=== PATIENT | female | born 1950 | race Hispanic/Latino ===

== ENCOUNTER 2016-10-11 18:50 | Inpatient (IN) | payer MEDICAID ==
[2016-10-11 18:59] VITALS: BMI 27.4
--- NOTE | 2016-10-11 19:05 | ED PDOC ---
HPI: Altered Mental Status Chief Complaint (Provider): AMS History Per: EMS Additional Complaint(s): 66 yo female, PMH of ESRD on Dialysis, CVA, HTN, presents to ED with AMS. As per EMS, Pt was at [facility], completed her session, and her BP spiked. EMS was contacted and reports that they noted Pt had left sided weakness. Pt has a history of strokes in the past however, unsure of what her baseline is. Pt moaning, non verbal. No history in chart review. Pt has paperwork with her from [employer] to [facility] from [facility]: 17:30: 199/100 1800: 244/100 Clonidine 0.2 mg administered PO 18:30 268/113 Normally she is verbal and walks with a cane- still verbal when leaving. EMS report Pt began moaning in route. Pt's PMD: Dr. Foreman <Mariana Stearns A - Last Filed: 10/11/16 19:01> <Syl Gonzalez Y - Last Filed: 10/12/16 00:01> <Lora Blue A - Last Filed: 10/18/16 09:54> Time Seen by Provider: 10/11/16 18:50 Chief Complaint (Nursing): Altered Mental Status NIHSS Stroke Scale - Date/Time Evaluation Performed Date Performed: 10/11/16 Time Performed: 19:00 When Was NIHSS Performed: Baseline - How Severe is the Stroke Level of Consciousness: 0=Alert LOC to Questions: 2=Neither correct LOC to commands: 2=Neither correct Best Gaze: 0=Normal Visual: 0=No visual loss Facial: 0=Normal Motor Arm - Left: 0=No drift Motor Arm - Right: 0=No drift Motor Leg - Left: 0=No drift Motor Leg - Right: 0=No drift Limb Ataxia: 0=Absent Sensory: 0=Normal Best Language: 0=No aphasia Dysarthia: 1=Mild to moderate slurring Extinction & Inattention (Neglect): 0=Normal, no object Score: 5 <Syl Gonzalez Y - Last Filed: 10/12/16 00:01> rTPA Inclusion/Exclusion - Refusal of Treatment Patient Refused Treatment: No - Inclusion Criteria for Altepase Patient is 18 years or Older: Yes Clinical DX Ischemic Stroke Cause Neurological Deficit: No Time of Onset Established Less Than 270 Mins Before TX Begin: No Risk/Benefit Discussed With Patient/Family Member Present: No - Exclusion Criteria for Altepase Uncontrolled Hypertension at Time of TX (SBP>185 or DBP>110): Yes Active Internal Bleeding: No Known Bleeding Diathesis: No Evidence of an Intracranial Hemorrhage: No Evidence Major Acute Infarct w/ Signs Greater Than 1/3 MCA: No Suspicion of Subarachnoid Bleed on PreTX Eval(CT: neg bleed): No - Warning to TPA With Conditions Following Conditions Weighed Against Anticipated Benefit: No <Syl Gonzalez Y - Last Filed: 10/12/16 00:01> - Refusal of Treatment Patient Refused Treatment: No - Inclusion Criteria for Altepase Patient is 18 years or Older: Yes Clinical DX Ischemic Stroke Cause Neurological Deficit: No Time of Onset Established Less Than 270 Mins Before TX Begin: No Risk/Benefit Discussed With Patient/Family Member Present: No - Exclusion Criteria for Altepase Uncontrolled Hypertension at Time of TX (SBP>185 or DBP>110): Yes <Lora Blue A - Last Filed: 10/18/16 09:54> Supervising Attending Note - Supervising Attending Note The Documented history was done by the: Physician Hat Brusher Machine The documented physical exam was done by the: Physician Hat Brusher Machine The documented procedures were done by the: Physician Hat Brusher Machine - Attestation: I have personally seen and examined this patient.: Yes I have fully participated in the care of the patient.: Yes I have reviewed all pertinent clinical information: Yes - Notes: Notes:: CRITICAL CARE TIME 60 minutes <Syl Gonzalez Y - Last Filed: 10/12/16 00:01> Past Medical History Reviewed: Historical Data, Nursing Documentation, Vital Signs Vital Signs: Last Vital Signs Temp Pulse 99 H 10/11/16 18:53 Resp 10/11/16 18:53 BP 264/101 H 10/11/16 18:53 Pulse Ox 70 L 10/11/16 18:53 - Medical History PMH: CVA, HTN, End Stage Renal Disease - Family History Family History: States: Unknown Family Hx <Mariana Stearns - Last Filed: 10/11/16 19:01> Vital Signs: Last Vital Signs Temp Pulse 66 10/11/16 21:45 Resp 10/11/16 21:45 BP 192/78 H 10/11/16 22:06 Pulse Ox 100 10/11/16 21:45 - Surgical History Surgical History: No Surg Hx <LisaSyl Y - Last Filed: 10/12/16 00:01> Vital Signs: Last Vital Signs Temp 97.8 F 10/14/16 20:00 Pulse 58 L 10/14/16 21:06 Resp 14 10/14/16 20:00 BP 179/40 H 10/14/16 21:06 Pulse Ox 98 10/14/16 20:00 <Lora Blue A - Last Filed: 10/18/16 09:54> - Home Medications Home Medications: Ambulatory Orders Medication Instructions Recorded Lisinopril [Zestril] 20 mg PO DAILY #30 tab 10/15/16 Vitamin B Complex/Vit C/Folic 1 tab PO DAILY #90 tab 10/15/16 [Nephro-Alyse] amLODIPine [Norvasc] 10 mg PO DAILY #30 tab 10/15/16 cloNIDine [Catapres] 0.1 mg PO Q8 #90 10/15/16 levETIRAcetam [Keppra] 250 mg PO BID #60 tab 10/15/16 - Allergies Allergies/Adverse Reactions: Allergies Allergy/AdvReac Type Severity Reaction Status Date / Time losartan [From Cozaar] Allergy Unknown unknown Verified 10/11/16 18:53 Review of Systems Review Of Systems: ROS cannot be obtained secondary to pt's inabilty to answer questions. <Mariana Stearns A - Last Filed: 10/11/16 19:01> Physical Exam - Reviewed Nursing Documentation Reviewed: Yes Vital Signs Reviewed: Yes - Physical Exam Appears: Positive for: Non-toxic Head Exam: Positive for: ATRAUMATIC, NORMAL INSPECTION, NORMOCEPHALIC Skin: Positive for: Normal Color, Warm, DRY Eye Exam: Positive for: EOMI, Normal appearance, PERRL ENT: Positive for: Normal ENT Inspection Neck: Positive for: Normal, Painless ROM Cardiovascular/Chest: Positive for: Regular Rate, Rhythm Respiratory: Positive for: CNT, Normal Breath Sounds Gastrointestinal/Abdominal: Positive for: Normal Exam, Bowel Sounds, Soft Back: Positive for: Normal Inspection Extremity: Positive for: Normal ROM Neurologic/Psych: Positive for: Alert, Other (moaning). Negative for: Gait <Mariana Stearns - Last Filed: 10/11/16 19:01> - ECG O2 Sat by Pulse Oximetry: 70 <Mariana Stearns - Last Filed: 10/11/16 19:01> - Laboratory Results Result Diagrams: 10/11/16 20:00 10/11/16 20:00 - ECG Pulse Ox Interpretation: Abnormal - Radiology X-Ray: Interpreted by Me, Viewed By Me X-Ray Interpretation: Other (chf, cant rule out infiltrate) - Core Measure Core Measure Indicators: Code Stroke <Syl Gonzalez Y - Last Filed: 10/12/16 00:01> - Laboratory Results Result Diagrams: 10/13/16 14:00 10/13/16 14:00 <Lora Blue - Last Filed: 10/18/16 09:54> Medical Decision Making Medical Decision Making: Code stroke activated. Dr. Blue at bedside. En route to CT scan, Pt developed tonic clonic seizure. 2 mg Ativan administered, seizing resolved. Pt post ictal during CT scan. Case endorsed to ED MD, Dr. Gonzalez, at 19:10 to continue critical care. <Mariana Stearns - Last Filed: 10/11/16 19:01> Medical Decision Making: Patient presented altered from dialysis and code stroke was activated in field. On arrival patient was purposely moving extremities but seemed confused. She was transferred to CT where she had a generalized tonic clonic seizure. I went to CT and patient's seizure had resolved by my arrival. She was transferred back to ER and became more alert. At that time arrived and took over care. <Lora Blue A - Last Filed: 10/18/16 09:54> Disposition - Patient ED Disposition Is Patient to be Admitted: Yes - Disposition Disposition Time: 19:12 - POA Present On Arrival: None <DarynMariana Bender - Last Filed: 10/11/16 19:01> - Patient ED Disposition Is Patient to be Admitted: Yes <Syl Gonzalez Y - Last Filed: 10/12/16 00:01> - Patient ED Disposition Is Patient to be Admitted: Yes - POA Present On Arrival: None <Lora Blue - Last Filed: 10/18/16 09:54> - Clinical Impression Clinical Impression: Altered mental status, Seizure - Disposition Condition: SERIOUS
[2016-10-11] MEDS ORDERED: Azithromycin 500 MG in Sodium Chloride 0.9% 250 ML IVPB STA (19:45)
[2016-10-11] MEDS ORDERED: cefTRIAXone (Rocephin) 1 gm Inj ONE (19:50)
--- NOTE | 2016-10-11 20:08 | ED PDOC ---
- Laboratory Results Result Diagrams: 10/11/16 20:00 10/11/16 20:00 - ECG O2 Sat by Pulse Oximetry: 70 (BiPAP) Pulse Ox Interpretation: Abnormal - Critical Care Total Time (In Min): 30 Medical Decision Making Medical Decision Makin:00 Patient transferred over to provider from Dr. Blue and WOO stern. Patient came in to the emergency room s/p dialysis completed with left-sided weakness. While patient was in CAT scan machine, she had a generalized seizure. Patient's blood pressure is systolic and in the high 200s, is restless and tachypnic, and was placed on BiPAP. CAT scan of brain is negative for acute processes. Antibiotics will be ordered for possible pneumonia. As per reassessment, patient presents with diffuse rales. Will begin a Cardene drip. Provider spoke with Dr. Meza neurology pinion sorter who states that the patient is not a TPA candidate. Initial Plan: * ABG Shock Panel * EKG * Cardene 20 mg in 200 ml IV at 5 mg/hr * Rocephin 1 gm * Zithromax 500 mg IVPB * BiPAP * Gentamicin 40 mg IVPB * Vancomycin 500 mg IVPB * Reevaluation 20:20 public relations writer will put nephrology (Dr. Hong [facility]) pinion sorter. Spoke with family and all questions were answered regarding diagnosis. 20:37 public relations writer spoke with Dr. Hong of nephrology who states that dialysis can be done tonight. 20:52 public relations writer called medicine pinion sorter for patient. 21:12 public relations writer spoke with hospitalist, Dr. Cook, who agrees to accept the patient in ICU. Awaiting callback from medicine, Dr. Hathaway. 21:30 public relations writer spoke with Dr. Hathaway who states that he wants cardiology pinion sorter and wants to add on Gentamicin and Vancomycin. ordered/ pts family made aware of plan. spent time at bedside answering questions from pts son and daughter in law. Scribe Attestation: Documented by Cristino Hawkins, acting as a scribe for Syl Gonzalez MD. Provider Scribe Attestation: All medical record entries made by the Scribe were at my direction and personally dictated by me. I have reviewed the chart and agree that the record accurately reflects my personal performance of the history, physical exam, medical decision making, and the department course for this patient. I have also personally directed, reviewed, and agree with the discharge instructions and disposition. Disposition Counseled Patient/Family Regarding: Studies Performed, Diagnosis - Clinical Impression Clinical Impression: Altered mental status, Seizure - POA Present On Arrival: None - Disposition Disposition: Admitted as In-Patient Disposition Time: 21:00 Condition: SERIOUS
[2016-10-11 20:09] LABS: BASO # 0.1 K/uL (0.0-0.2); BASO % 0.6 % (0.0-2.0); EOS # 0.1 K/uL (0.0-0.7); EOS % 1.5 % (0.0-4.0); HEMATOCRIT 42.3 % (34.0-47.0); LYMPH # 1.4 K/uL (1.0-4.3); LYMPH % 13.8 % (20.0-40.0); MEAN CELL VOLUME 99.2 fl (81.0-99.0); MEAN CORPUSCULAR HEMOGLOBIN 31.8 pg (27.0-31.0); MEAN CORPUSCULAR HGB CONC 32.1 g/dL (33.0-37.0); MEAN PLATELET VOLUME 10.8 fl (7.2-11.7); MONO # 0.5 K/uL (0.0-0.8); MONO % 4.6 % (0.0-10.0); NEUT # 7.8 K/uL (1.8-7.0); NEUT % 79.5 % (50.0-75.0); RED CELL DISTRIBUTION WIDTH 16.8 % (11.5-14.5); WHITE BLOOD COUNT 9.8 K/uL (4.8-10.8)
[2016-10-11 20:16] LABS: ALB/GLOB RATIO 1.4 (1.0-2.1); ALCOHOL SERUM < 10 mg/dl (0-10); ALKALINE PHOSPHATASE 162 U/L (38-126); ALT/SGPT 76 U/L (9-52); AST/SGOT 47 U/L (14-36); BILIRUBIN,TOTAL 0.6 mg/dl (0.2-1.3); BLOOD UREA NITROGEN 27 mg/dl (7-17); CARBON DIOXIDE 23 mmol/L (22-30); CHLORIDE 96 mmol/L (98-107); GFR AFRICAN-AMERICAN 15; GLUCOSE,RANDOM 169 mg/dL (65-105); MAGNESIUM 2.1 MG/DL (1.6-2.3); PHOSPHOROUS 4.6 mg/dl (2.5-4.5); POTASSIUM 3.8 MMOL/L (3.6-5.0); SODIUM 136 mmol/l (132-148); TOTAL PROTEIN 7.5 G/DL (6.3-8.2)
[2016-10-11] MEDS: Nicardipine 20 MG/200 ML 20 MG/200 ML BAG IV ONE ×2 (20:40→22:30)
[2016-10-11] MEDS ORDERED: Albuterol-Ipratrop 3 mg / 0.5 (3 ml) UD INH PRN (21:10)
[2016-10-11] MEDS ORDERED: STERILE WATER FOR INJ IVPB STA (21:28)
[2016-10-11] MEDS ORDERED: GENTAMICIN IVPB STA (21:28)
[2016-10-11] MEDS ORDERED: Gentamicin 40 MG in Sodium Chloride 0.9% 50 ML IVPB STA (21:46)
[2016-10-11 22:01] LABS: PARTIAL THROMBOPLASTIN TIME 26.6 SECONDS (23.3-32.5)
--- NOTE | 2016-10-11 22:09 | CP.PCM.HP ---
History of Present Illness - History of Present Illness History of Present Illness: CC: elevated BP, AMS, ?facial droop History largely from chart and family as patient not awake/interactive currently HPI: This is a 66 y/o female with ESRD on HD (M/W/F), HTN, ?seizure disorder who was brought in by EMS after reportedly having severely elevated SBP (200+) at dialysis along with ?L facial droop and changes in mental status. Apparently she was initially given a dose of clonidine there when her BP was first up, but then EMS was called when the facial droop started ~530. By the time of arrival in ED, no facial droop was present, BP was still uncontrolled, and mental status was decreased. She was not a TPA candidate per neurology. Per report, while at CT she had a seizure. Per family she has been on BP medications, but decided to stop them herself ~6 months ago as she felt she was 'on too many medications'. But recently she has been having severely elevated BP following her dialysis (200s) and so started taking some of her BP medications again. Unclear which medications she is on or how compliant she is with them. Apparently she has checked her BPs on non HD days at the local [facility] and it has been SBP 130s. Patient does have HACKETT when BP is high. Patient unable to provide any further history. Family not able to provide any other significant history. ROS: Unable to perform; patient not awake/interactive currently MHx: ESRD on HD as above, HTN, possible seizure disorder SHx: Thyroid surgery?, one donated kidney, surgery for trauma, and GI tumor surgery with temporary colostomy Allergies: Losartan Medications: Unknown currently Family Hx: Patient unable to provide Social Hx: Lives with family, no EtOH, no Tobacco Surrogate: Son, info in chart Present on Admission - Present on Admission Any Indicators Present on Admission: No Past Patient History - Past Social History Smoking Status: Never Smoked - CARDIAC Hx Hypertension: Yes - RENAL Hx Dialysis: Yes - PSYCHIATRIC Hx Substance Use: No Meds Allergies/Adverse Reactions: Allergies Allergy/AdvReac Type Severity Reaction Status Date / Time losartan [From Cozaar] Allergy Unknown unknown Verified 10/11/16 18:53 Physical Exam - Constitutional Appears: Confused Additional comments: confused, does not follow commands, and is somnolent as well - Head Exam Head Exam: ATRAUMATIC, NORMOCEPHALIC - Eye Exam Eye Exam: EOMI, PERRL - ENT Exam ENT Exam: Mucous Membranes Moist - Neck Exam Neck exam: Positive for: Full Rom - Respiratory Exam Additional comments: bibasilar crackles - Cardiovascular Exam Cardiovascular Exam: REGULAR RHYTHM, +S1, +S2 - GI/Abdominal Exam GI & Abdominal Exam: Normal Bowel Sounds, Soft - Extremities Exam Extremities exam: Positive for: normal inspection - Neurological Exam Additional comments: somnolent, does not follow commands well - Skin Skin Exam: Dry, Warm Results - Vital Signs Recent Vital Signs: Last Vital Signs Temp Pulse 71 10/11/16 21:31 Resp 20 10/11/16 21:31 BP 192/78 H 10/11/16 21:56 Pulse Ox 70 L 10/11/16 21:33 - Labs Result Diagrams: 10/11/16 20:00 10/11/16 20:00 - Imaging and Cardiology CT scan - head Status: Image reviewed by me (No obvious findings; no midline shift, no masses or bleeding) Chest x-ray Status: Image reviewed by me (Likely some vol overload, ?opacity on right) Assessment & Plan (1) Flash pulmonary edema Assessment and Plan: 66 y/o female with multiple medical problems coming in with possible TIA/CVA, elevated BP and possible FPE/vol overload, ?seizure, and possible PNA. 1) TIA/CVA, AMS -Admit to ICU -Serial troponins -Echo, carotids in AM -EKG in AM -Neurology consulted -- defer to neuro on MRI Brain -Q4H neuro checks -Control BP, currently on nicardipine gtt; should improve with urgent HD 2) FPE/Vol overload, uncontrolled BP -Plan for urgent dialysis this evening -Cont BiPAP for now -Cont nicardipine gtt for now 3) PNA -- presentation does not appear concerning for HCAP -Started on Azithro and Ceftriaxone in ER, will continue these and consider broadening to HCAP coverage only if further evidence of a PNA -Dunubiabs 4) ?Seizure/seizure DO -- unclear if patient is on any medications -Will need to f/u with her pharmacy for further info -Neuro is consulted as well 5) DVT PPx -- SCDs only for now 6) GI PPx -- PPI while on BiPAP Status: Acute (2) Uncontrolled hypertension Status: Acute (3) TIA (transient ischemic attack) Status: Acute (4) Altered mental status Status: Acute (5) DVT prophylaxis Status: Acute (6) Seizure Status: Acute
[2016-10-11] MEDS ORDERED: Nicardipine 20 MG/200 ML 20 MG/200 ML BAG IV ONE (22:28)
--- NOTE | 2016-10-12 01:40 | CARD ---
APPROVED REPORT EKG Measurement Heart [id number] <Conclusion> Normal sinus rhythm Possible Left atrial enlargement Left ventricular hypertrophy with repolarization abnormality Abnormal ECG
[2016-10-12] MEDS ORDERED: Nicardipine 20 MG/200 ML 20 MG/200 ML BAG IV ONE (06:27)
--- NOTE | 2016-10-12 07:47 | CP.CCUPN ---
CCU Subjective - Physician Review Events Since Last Encounter (Free Text): 10/12/16 13:41 The Patient was seen and examined at the bedside, Medical records reviewed, all clinical/lab/hemodynamic/radiographic data were reviewed and management issues were discussed and formulated, Events reviewed Pain issues, skin care, head of the bed elevation, GI/DVT prophylaxis, glycemic control were addressed. AAO x3, sitting comfortable in chair, feeling better 66 Y/O F with PMHx of HTN, CVA, possible seizure disorder and End Stage Renal Disease on HD who was brought in by EMS for severely elevated BP 214/100 at dialysis center along with L facial droop and changes in mental status. As per EMS, Pt completed her HD session, and her BP spiked, she was initially given a dose of Clonidine 0.2 mg PO there when her BP was first up, but then EMS was called when the facial droop started ~530, By the time of arrival in Emergency department, no facial droop was present, She was not a TPA candidate per neurology. Per report, while at CT she had a generalized seizure. CAT scan of brain is negative for acute processes. Admitted to the ICU, BP was still uncontrolled, and she was started on Cardene drip. BP gradually improving Pt doing better today, improved mental status. Started on home antihypertensive. Refused BIPAP and extra HD today 10/12/16 13:49 Also, started on IV Antibiotics for possible pneumonia but she refused, Continue to monitor off Antibiotics CCU Objective - Vital Signs / Intake & Output Vital Signs (Last 4 hours): Vital Signs Temp Pulse Resp BP Pulse Ox 10/12/16 07:34 98.5 F 70 22 149/58 L 96 10/12/16 06:48 65 159/66 H 10/12/16 06:00 67 18 165/68 H 96 10/12/16 05:00 67 18 163/70 H 93 L 10/12/16 04:00 98.5 F 64 18 151/58 H 96 Intake and Output (Last 8hrs): Intake & Output 10/11/16 10/12/16 10/12/16 22:59 06:59 14:59 Intake Total 300 Balance 300 Weight 120 lb Intake: IV 300 - Physical Exam Head: Positive for: Atraumatic, Normocephalic. Negative for: Tenderness, Contusion, Swelling, Ecchymosis, Abrasion, Laceration, Other Pupils: Positive for: PERRL. Negative for: Sluggish, Non-Reactive, Pinpoint, Other Extroacular Muscles: Positive for: EOMI. Negative for: Gaze Palsy, Entrapment, Other Conjunctiva: Positive for: Normal. Negative for: Injected, Icteric, Other Mouth: Positive for: Moist Mucous Membranes Nose (Internal): Positive for: Normal Inspection Neck: Positive for: Normal Range of Motion, Trachea Midline. Negative for: Meningeal Signs, MIDLINE TENDERNESS, Paraspinal Tenderness, JVD, Lymphadenopathy , Bruit, Other Respiratory/Chest: Positive for: Clear to Auscultation, Good Air Exchange. Negative for: Respiratory Distress, Accessory Muscle Use, Wheezes, Decreased Breath Sounds, Rales, Retracting, Rhonchi, Tachypneic, Tender to Palpation Cardiovascular: Positive for: Regular Rate and Rhythm, Normal S1, S2, Peripheal Pulses Present. Negative for: Murmurs, Irregular Rhythm, Tachycardic, Bradycardic Abdomen: Positive for: Normal Bowel Sounds. Negative for: Tenderness, Distention, Peritoneal Signs Upper Extremity: Positive for: Normal Inspection, Capillary Refill < 2s. Negative for: Cyanosis, Edema Lower Extremity: Positive for: Normal Inspection, NORMAL PULSES, Capillary Refill < 2 s. Negative for: Edema, CALF TENDERNESS Neurological: Positive for: GCS=15, CN II-XII Intact, Speech Normal, Motor Func Grossly Intact, Normal Sensory Function Psychiatric: Positive for: Alert, Oriented x 3, Normal Insight, Normal Concentration, Normal Affect - Medications Active Medications: Active Medications Generic Name Dose Route Start Last Admin Trade Name Freq PRN Reason Stop Dose Admin Acetaminophen 650 mg 10/11/16 21:04 Tylenol 325mg Tab PO Q6H PRN Fever >100.4 F Albuterol/Ipratropium 3 ml 10/11/16 21:10 Duoneb 3 Mg/0.5 Mg (3 Ml) Ud INH RQ6 PRN Shortness of Breath Ceftriaxone Sodium 1 gm/ 100 mls @ 100 mls/hr 10/12/16 09:00 Sodium Chloride IVPB DAILY NEVAEH Azithromycin 500 mg/ Sodium 250 mls @ 250 mls/hr 10/12/16 09:00 Chloride IVPB DAILY NEVAEH Nicardipine HCl 20 mg in 200 mls @ 50 mls/hr 10/12/16 06:27 10/12/16 06:48 Cardene Iv Premix IV 10/12/16 10:26 5 mg/hr .Q4H ONE 50 mls/hr Protocol Administration 5 MG/HR Pantoprazole Sodium 40 mg 10/12/16 09:00 Protonix Ec Tab PO DAILY NEVAEH - Patient Studies EKG/Cardiology Studies: Cardiology / EKG Studies 10/12/16 07:00 EKG [ELECTROCARDIOGRAM] Routine Comment: Mode Of Transportation: Reason For Exam: CVA Fingerstick Blood Sugar Results: 143 Review of Systems - Cardiovascular Cardiovascular: absent: As Per HPI, Acrocyanosis, Chest Pain, Chest Pain at Rest , Chest Pain with Activity, Claudication, Diaphoresis, Dyspnea, Dyspnea on Exertion, Edema, Irregular Heart Rhythm, Pain Radiating to Arm/Neck/Jaw, Leg Edema, Leg Ulcers, Lightheadedness, Orthopnea, Palpitations, Paroxysmal Nocturnal Dyspnea, Pedal Edema, Radiating Pain, Rapid Heart Rate, Slow Heart Rate, Syncope, Other, UNREMARKABLE - Respiratory Respiratory: absent: As Per HPI, Cough, Dyspnea, Hemoptysis, Dyspnea on Exertion , Wheezing, Snoring, Stridor, Pain on Inspiration, Chest Congestion, Excessive Mucous Production, Change in Mucous Color, Pain with Coughing, Other, UNREMARKABLE Critical Care Progress Note - Extremities/Vascular Does the Patient have a Central Venous Catheter?: No Does the Patient need a Central Venous Catheter?: No Does the Patient have a Abdi Catheter?: No Does the Patient need a Abdi Catheter?: No - Nutrition Nutrition: Nutrition Category Date Time Status NPO Diet [DIET] Diets 10/11/16 Breakfast Active Assessment/Plan (1) Hypertensive urgency Current Visit: Yes Status: Acute Comment: Wean off Cardene drip. Started on home antihypertensive. Refused extra HD today (2) TIA (transient ischemic attack) Current Visit: Yes Status: Acute Comment: CAT scan of brain is negative for acute processes. Neuro check Follow up carotid doppler and ECHO (3) Altered mental status Current Visit: Yes Status: Acute Comment: Hypertensive encephalopathy CAT scan of brain is negative for acute processes. Pt doing better today, improved mental status. (4) Seizure Current Visit: Yes Status: Acute (5) DVT prophylaxis Current Visit: Yes Status: Acute
--- NOTE | 2016-10-12 08:06 | CP.PCM.CON ---
History of Present Illness - History of Present Illness History of Present Illness: Full Note Dictated. Hypertension with CKD (ESRD on Chr HD) ?? TIA Needs echocardiogram (to be done today) Stable from cardiac point of view. Past Patient History - Past Social History Smoking Status: Never Smoked - CARDIAC Hx Hypertension: Yes - RENAL Hx Dialysis: Yes Type of Dialysis Access: Right AV fistula Date of Last Dialysis Treatment: 10/11/16 - MUSCULOSKELETAL/RHEUMATOLOGICAL Hx Falls: No - PSYCHIATRIC Hx Substance Use: No - ANESTHESIA Hx Anesthesia: Yes Hx Anesthesia Reactions: No Hx Malignant Hyperthermia: No Meds Allergies/Adverse Reactions: Allergies Allergy/AdvReac Type Severity Reaction Status Date / Time losartan [From Cozaar] Allergy Unknown unknown Verified 10/11/16 18:53 - Medications Medications: Current Medications Acetaminophen (Tylenol 325mg Tab) 650 mg PO Q6H PRN PRN Reason: Fever >100.4 F Albuterol/Ipratropium (Duoneb 3 Mg/0.5 Mg (3 Ml) Ud) 3 ml INH RQ6 PRN PRN Reason: Shortness of Breath Ceftriaxone Sodium 1 gm/ (Sodium Chloride) 100 mls @ 100 mls/hr IVPB DAILY NEVAEH Azithromycin 500 mg/ Sodium (Chloride) 250 mls @ 250 mls/hr IVPB DAILY NEVAEH Nicardipine HCl (Cardene Iv Premix) 20 mg in 200 mls @ 50 mls/hr IV .Q4H ONE; 5 MG/HR PRN Reason: Protocol Stop: 10/12/16 10:26 Last Admin: 10/12/16 06:48 Dose: 5 mg/hr, 50 mls/hr Pantoprazole Sodium (Protonix Ec Tab) 40 mg PO DAILY [facility] Results - Vital Signs Recent Vital Signs: Last Vital Signs Temp 98.5 F 10/12/16 07:34 Pulse 70 10/12/16 07:34 Resp 22 10/12/16 07:34 BP 149/58 L 10/12/16 07:34 Pulse Ox 96 10/12/16 07:34 - Labs Result Diagrams: 10/11/16 20:00 10/11/16 20:00
--- NOTE | 2016-10-12 08:39 | CON ---
DATE: 10/12/2016 She is hospitalized under Dr. Hathaway' care in room 421 of intensive care unit. This 66-year-old female, a longstanding hypertensive, who has been on hemodialysis since 1994, came i nto the hospital after she developed facial droop with severe hypertension while undergoing hemodialy sis. She has never been a smoker or a diabetic. Denies ever having suffered a myocardial infarction and reports good effort tolerance. She indicates that she is able to walk 8-10 blocks with a cane w ithout having to stop. She has never experienced any pedal edema and attends her hemodialysis regula rly. By her own account, she has at times taken less or more medicines depending on how she felt. Y day, she was brought to the Emergency Room where she required intravenous administration of Card christian to control her systolic blood pressure. PHYSICAL EXAMINATION: GENERAL: Shows an elderly, pleasant female who is reluctant to stay in the hospital alert, awake, co herent, afebrile. Can carry on a conversation, able to lie virtually flat and breathe at 16 breaths per minute. VITAL SIGNS: Has a heart rate of 70 beats per minute, regular with a blood pressure of 150/74 mmHg. Her jugular venous pressure was not elevated. EXTREMITIES: There was no edema of the lower extremities. The pedal pulses were well felt. NECK: There were no carotid bruits. HEART: The first and second heart sounds were distant but normal. There was no S3 gallop. LUNGS: There were no rales. ABDOMEN: Soft. EXTREMITIES: A dialysis shunt was in the right upper extremity. Her electrocardiogram showed sinus rhythm with left ventricular hypertrophy. LABORATORY DATA: Showed a hemoglobin and hematocrit of 13.6 g and 42.3% respectively. Her WBC count and platelet counts were within normal limits. Her BUN and creatinine were 27 and 3.7 mg %, potassi um was 3.8. Her liver profile was moderately abnormal with elevated AST and ALT as well as alkaline phosphatase. IMPRESSION: At this time is hypertension with chronic hemodialysis due to end-stage renal disease an d a possible transient ischemic attack. The patient will undergo an echocardiogram. Her medications , which she used to take at home, are not available. Now that her blood pressure is well controlled, she can be tapered off Cardene and her medications from home can be gradually restarted. I will rev iew her echocardiogram and revisit her case again. Mehul Herrera MD cc: 23 TT: 10/12/2016 08:38:39 Confirmation # [id number] Dictation # [id number]
--- NOTE | 2016-10-12 09:33 | CT ---
PROCEDURE: CT HEAD WITHOUT CONTRAST. HISTORY: AMS COMPARISON: None available. TECHNIQUE: Axial computed tomography images were obtained through the head/brain without intravenous contrast. Radiation dose: Total exam DLP = 1185.56 mGy-cm. This CT exam was performed using one or more of the following dose reduction techniques: Automated exposure control, adjustment of the mA and/or kV according to patient size, and/or use of iterative reconstruction technique. FINDINGS: HEMORRHAGE: No intracranial hemorrhage. BRAIN: Old infarct left occipitoparietal watershed zone. In addition, there are mild chronic periventricular white matter ischemic changes. Mild generalized volume loss. Mild calcified atherosclerotic plaque changes. VENTRICLES: No evidence of obstructive hydrocephalus CALVARIUM: No acute calvarial fractures. PARANASAL SINUSES: Unremarkable as visualized. No significant inflammatory changes. MASTOID AIR CELLS: Unremarkable as visualized. No inflammatory changes. OTHER FINDINGS: None. IMPRESSION: No acute intracranial hemorrhage. Chronic left occipito-parietal watershed zone infarct. Mild chronic white matter ischemic changes. Mild generalized volume loss
[2016-10-12] MEDS: Azithromycin 500 MG in Sodium Chloride 0.9% 250 ML IVPB SCH (09:46)
[2016-10-12] MEDS: Pantoprazole 40 mg EC Tab PO SCH ×2 (10:24→10:30)
--- NOTE | 2016-10-12 12:27 | RAD ---
HISTORY: altered COMPARISON: No prior. FINDINGS: LUNGS: Diffuse bilateral infiltrates. Rule out pulmonary edema/ CHF versus pneumonia. PLEURA: No significant pleural effusion identified, no pneumothorax apparent. CARDIOVASCULAR: Cardiomegaly. Mendoza OSSEOUS STRUCTURES: No significant abnormalities. VISUALIZED UPPER ABDOMEN: Normal. OTHER FINDINGS: None. IMPRESSION: Diffuse bilateral infiltrates; rule out pulmonary edema versus pneumonia
--- NOTE | 2016-10-12 13:16 | CP.PCM.CON ---
History of Present Illness - History of Present Illness History of Present Illness: 66 y/o female with ESRD on HD (M/W/F), HTN, seizure disorder is admitted with AMS and uncontrolled htn SBP (200+), ? rule out CVA. last hd was on tuesday. denies any sob or chest pain or edema Review of Systems - Review of Systems All systems: reviewed and no additional remarkable complaints except Past Patient History - Past Social History Smoking Status: Never Smoked - CARDIAC Hx Cardiac Disorders: Yes Hx Congestive Heart Failure: No Hx Hypercholesterolemia: No Hx Hypertension: Yes - PULMONARY Hx Chronic Obstructive Pulmonary Disease (COPD): No Hx Pneumonia: No - NEUROLOGICAL HX Cerebrovascular Accident: Yes (2001) - RENAL Hx Renal Failure: No - ENDOCRINE/METABOLIC Hx Diabetes Mellitus Type 1: No Hx Diabetes Mellitus Type 2: No Hx Hypothyroidism: No - HEMATOLOGICAL/ONCOLOGICAL Hx Cancer: No - MUSCULOSKELETAL/RHEUMATOLOGICAL Hx Arthritis: No Hx Rheumatoid Arthritis: No - GASTROINTESTINAL Hx Gastroesophageal Reflux: No - PSYCHIATRIC Hx Substance Use: No - ANESTHESIA Hx Anesthesia: Yes Hx Anesthesia Reactions: No Hx Malignant Hyperthermia: No Meds Allergies/Adverse Reactions: Allergies Allergy/AdvReac Type Severity Reaction Status Date / Time [facility] Allergy Unknown unknown Verified 10/11/16 18:53 - Medications Medications: Current Medications Acetaminophen (Tylenol 325mg Tab) 650 mg PO Q6H PRN PRN Reason: Headache Last Admin: 10/12/16 10:24 Dose: 650 mg Albuterol/Ipratropium (Duoneb 3 Mg/0.5 Mg (3 Ml) Ud) 3 ml INH RQ6 PRN PRN Reason: Shortness of Breath Clonidine HCl (Catapres) 0.1 mg PO TID [facility] Last Admin: 10/12/16 12:22 Dose: 0.1 mg Ceftriaxone Sodium 1 gm/ (Sodium Chloride) 100 mls @ 100 mls/hr IVPB DAILY [facility] Last Admin: 10/12/16 09:46 Dose: Not Given Azithromycin 500 mg/ Sodium (Chloride) 250 mls @ 250 mls/hr IVPB DAILY [facility] Last Admin: 10/12/16 09:46 Dose: Not Given Lisinopril (Zestril) 2.5 mg PO DAILY [facility] Last Admin: 10/12/16 12:19 Dose: 2.5 mg Pantoprazole Sodium (Protonix Ec Tab) 40 mg PO DAILY [facility] Last Admin: 10/12/16 10:30 Dose: Not Given Physical Exam - Constitutional Appears: Non-toxic, No Acute Distress - Head Exam Head Exam: NORMAL INSPECTION - Eye Exam Eye Exam: Normal appearance - ENT Exam ENT Exam: Mucous Membranes Moist - Neck Exam Neck exam: Positive for: Normal Inspection - Respiratory Exam Respiratory Exam: NORMAL BREATHING PATTERN - Cardiovascular Exam Cardiovascular Exam: +S1, +S2 - GI/Abdominal Exam GI & Abdominal Exam: Soft - Extremities Exam Extremities exam: Positive for: normal inspection - Neurological Exam Neurological exam: Alert, Oriented x3 - Psychiatric Exam Psychiatric exam: Flat Affect - Skin Skin Exam: Dry Results - Vital Signs Recent Vital Signs: Last Vital Signs Temp 98.6 F 10/12/16 12:00 Pulse 69 10/12/16 12:22 Resp 27 H 10/12/16 12:00 BP 160/69 H 10/12/16 12:22 Pulse Ox 98 10/12/16 12:00 - Labs Result Diagrams: 10/11/16 20:00 10/11/16 20:00 Assessment & Plan - Assessment and Plan (Free Text) Plan: esrd/ams/seziure disorder/htn hd mwf, tomorrow per schedule volume status is stable bp, better, continue current regimen anemia: stable, hb >10 n oepo lytes reviewed can check phos level
--- NOTE | 2016-10-12 18:25 | CARD ---
APPROVED REPORT EXAM: Two-dimensional and M-mode echocardiogram with Doppler and color Doppler. Other Information Quality : GoodRhythm : NSR INDICATION CVA/TIA 2D DIMENSIONS IVSd1.78 (0.7-1.1cm)LVDd4.82 (3.9-5.9cm) LVOT Diameter2.22 (1.8-2.4cm)PWd1.18 (0.7-1.1cm) IVSs1.90 (0.8-1.2cm)LVDs3.37 (2.5-4.0cm) FS (%) 29.9 %PWs1.95 (0.8-1.2cm) LVEF (%)55.0 (>50%) M-Mode DIMENSIONS Left Atrium (MM)4.97 (2.5-4.0cm)IVSd1.32 (0.7-1.1cm) Aortic Root2.79 (2.2-3.7cm)LVDd5.71 (4.0-5.6cm) Aortic Cusp Exc.1.85 (1.5-2.0cm)PWd1.50 (0.7-1.1cm) IVSs1.82 cmFS (%) 44 % LVDs3.18 (2.0-3.8cm)PWs1.71 cm Mitral Valve MV E Ubkdqypr32.4cm/sMV DECEL [id number] A Khwbcrue744.1cm/s MV LOD40doT/A ratio0.9MVA (PHT)2.73cm2 TDI E/Lateral E'0.0E/Medial E'0.0 Pulmonary Valve PV Peak Hjtrraxd147.0cm/s Tricuspid Valve TR Peak Njsfajzj098xs/sRAP [id number] Peak Gr.27mmHg SLBY84ihZg LEFT VENTRICLE The left ventricle is normal size. There is moderate to severe concentric left ventricular hypertrophy. The left ventricular function is normal. The left ventricular ejection fraction is within the normal range. There is normal LV segmental wall motion. Transmitral Doppler flow pattern is Grade I-abnormal relaxation pattern. RIGHT VENTRICLE The right ventricle is normal size. There is normal right ventricular wall thickness. The right ventricular systolic function is normal. ATRIA The left atrium is moderately dilated. The right atrium is mildly dilated. A small PFO is noted AORTIC VALVE The aortic valve is moderately thickened. No aortic regurgitation is present. There is no aortic valvular stenosis. MITRAL VALVE The mitral valve is moderately thickened. There is no mitral valve stenosis. Mitral regurgitation is moderate to severe. TRICUSPID VALVE The tricuspid valve is normal in structure There is mild tricuspid regurgitation. There is mild pulmonary hypertension. PULMONIC VALVE The pulmonary valve is normal in structure and function. There is no pulmonic valvular regurgitation. GREAT VESSELS The aortic root displays moderate sclerocalcific changes of the aortic root. The IVC was not visualized. PERICARDIAL EFFUSION The pericardium appears normal. <Conclusion> The left ventricle is normal size. There is moderate to severe concentric left ventricular hypertrophy. The left ventricular function is normal. The left ventricular ejection fraction is within the normal range. There is normal LV segmental wall motion. Transmitral Doppler flow pattern is Grade I-abnormal relaxation pattern. Mitral regurgitation is moderate to severe. There is mild tricuspid regurgitation. There is mild pulmonary hypertension. A small PFO is noted
[2016-10-13] MEDS: Nicardipine 20 MG/200 ML 20 MG/200 ML BAG IV ONE ×2 (02:00→05:16)
--- NOTE | 2016-10-13 08:31 | HP ---
HISTORY OF PRESENT ILLNESS: This is a 66-year-old, [place]ic female with history of end-stage renal disease on hemodialysis for over 20 years, hypertension, questionable seizure disorder, who was brought in by emergency medical team. During dialysis the patient felt that she was about to have a seizure. The patient feels that she is not able to see or speak. The patient alerted the diagnostic technician . The patient was brought to the Emergency Room. By the time the patient arrived to the Emergency Room, there was new neurological deficit. The patient was reported to have facial droop by the diagnostic technician. The patient was evaluated in the Emergency Room and she had a "stroke," and she was not a tPA candidate as her symptoms completely resolved by the time she arrived to the Emergency Room. While the patient was sent to CAT scan, she developed a seizure. The patient has been compliant for her medication except that she stopped her blood pressure medication about 6 months . The patient stated that she gets these symptoms about once a year. The patient also was found to have bilateral pulmonary congestion during evaluation in the Emergency Room. REVIEW OF SYSTEMS: Other review of system is negative. ALLERGIES: No known allergy. HOME MEDICATIONS: The patient is not compliant to any home medications. FAMILY HISTORY: Not contributory. SOCIAL HISTORY: No history of smoking, ETOH, or substance abuse. PHYSICAL EXAMINATION: GENERAL: The patient is in bed , not in any cardiopulmonary distress VITAL SIGNS: Blood pressure 156/86, temperature 98.1, pulse 93, and respiratory rate 14. HEENT: Pupils equal, reactive to light. Normal-appearing mucosa of the conjunctivae, oropharyngeal, and nasal membrane mucosa. NECK: Supple. No JVD. No carotid bruit. No lymph node. No thyromegaly. CHEST AND LUNGS: Bilateral symmetrical expansion. Few bilateral basilar rales. CARDIOVASCULAR: PMI not localized. S1, S2. No additional sounds. ABDOMEN: Normoactive bowel sounds. No tenderness. No organomegaly. No masses. EXTREMITIES: No cyanosis. No clubbing. No edema. CENTRAL NERVOUS SYSTEM: Alert, awake, oriented x 3. No neurological deficits could be appreciated. ASSESSMENT: 1. Seizure disorder. 2. Possible congestive heart failure. 3. End-stage renal disease on hemodialysis. 4. Hypertension. Poorly-controlled secondary to noncompliance to medications. PLAN: Cardiology, neurology, and nephrology consultation. We will start her blood pressure medications, lisinopril 2.5 mg daily. Follow recommendations of the consultants. Continue current IV antibiotics. Patrick Hathaway MD cc: 167 TT: 10/13/2016 05:04:25 tn MTDKatt
--- NOTE | 2016-10-13 09:23 | CP.PCM.PN ---
Subjective - Date & Time of Evaluation Date of Evaluation: 10/13/16 Time of Evaluation: 09:00 - Subjective Subjective: Fairly symptom free at this point Sinus rhythm at 68 BPM Had been getting Albutro inhalations with syst BP exceeding 200 Mg Chest clear Echo reviewed (LVH+) Normal syst function Have D/Jasvir Albuterol Lisinopril 20 mg OD now Amlodipine will be added if BP can not be controlled Discussed at length with Quarrying Specialist Objective - Vital Signs/Intake and Output Vital Signs (last 24 hours): Temp Pulse Resp BP Pulse Ox 97.7 F 67 15 141/81 95 10/13/16 08:00 10/13/16 08:00 10/13/16 08:00 10/13/16 08:00 10/13/16 08:00 Intake and Output: 10/13/16 10/13/16 06:59 18:59 Intake Total 650 Output Total 0 Balance 650 - Medications Medications: Current Medications Acetaminophen (Tylenol 325mg Tab) 650 mg PO Q6H PRN PRN Reason: Headache Last Admin: 10/12/16 10:24 Dose: 650 mg Clonidine HCl (Catapres) 0.1 mg PO TID [facility] Last Admin: 10/12/16 16:15 Dose: 0.1 mg Ceftriaxone Sodium 1 gm/ (Sodium Chloride) 100 mls @ 100 mls/hr IVPB DAILY [facility] Last Admin: 10/12/16 09:46 Dose: Not Given Azithromycin 500 mg/ Sodium (Chloride) 250 mls @ 250 mls/hr IVPB DAILY [facility] Last Admin: 10/12/16 09:46 Dose: Not Given Levetiracetam (Keppra) 250 mg PO BID [facility] Last Admin: 10/12/16 17:00 Dose: Not Given Lisinopril (Zestril) 20 mg PO DAILY [facility] Pantoprazole Sodium (Protonix Ec Tab) 40 mg PO DAILY [facility] Last Admin: 10/12/16 10:30 Dose: Not Given - Labs Labs: PT 11.4 SECONDS (9.6-11.2) H 10/11/16 20:15 INR 1.10 (0.92-1.08) H 10/11/16 20:15 APTT 26.6 SECONDS (23.3-32.5) 10/11/16 20:15
[2016-10-13] MEDS: Azithromycin 500 MG in Sodium Chloride 0.9% 250 ML IVPB SCH (09:40)
[2016-10-13] MEDS: Pantoprazole 40 mg EC Tab PO SCH ×2 (09:47→10:55)
--- NOTE | 2016-10-13 11:56 | CP.CCUPN ---
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 Cardene drip stopped this AM at 920Am with resultant SBP 160. Vitals: afebrile, BP 140/80 on Cardene 5 mg/hr, HR 67, RR 20. SPo2 97% on RA. I/Os last 12H= + 1.3L. ROS: All pertinent Nursing notes, 10+ systems review unobtainable: otherwise as above. PMSFH: No other new pertinent information relative to current medical problems; otherwise as noted in Nursing documentation. EXAM- HEENT: no icterus, pupils midline, equal and reactive, no nystagmus NECK: no visible JVD, supple, carotids equal upstroke bilat/no bruits CHEST: decreased BS bases, no wheezes audible. HEART: regular, distant, ella S1S2, no murmur audible, no rubs. ABD: soft, no increased distention, no tenderness, no guarding; no HSM. BS hypoactive. EXT: no peripheral/ digital cyanosis, no calf tenderness or palpable cords, distal pulses intact and symmetrical NEURO: mild left hemiparesis SKIN: no rashes LABS: most recent bloodwork from 10/11 below: WBC= 9.8 HGB= 13.6 PLTs = 178K Na= 136 K= 3.8 HCO3= 23 BUN/Cr= 27/3.7 BS= 169 Assessment: 1. Accelerated HTN: noncompliant with Clonidine and ACEi 2. TIA / CVA 3. Seizure disorder 4. Acute Resp insuff 2 Pulm vasc congestion 2 Diastolic dysfx 5. PFO on ECHO 6. ESRD on CAHD PLAN: 1. Stop Cardene, avoid excessive lowering of BP. Resume Clonidine at TID dosing, and continue ACEi at increased dosing level as per Cardio. PO CCBs if BP remains elevated with MAP above 120 after HD today. 2. Routine HD today 3. Check Repeat bloodwork post HD today. Difficult peripheral venipuncture limiting patients cooperation for routine blood work. 4. Patient refusing Keppra as well. 5. Stable for transfer to stepdown bed today.
--- NOTE | 2016-10-13 12:58 | US ---
PROCEDURE: Carotid vertebral duplex sonography HISTORY: CVA COMPARISON: None available. TECHNIQUE: Grayscale, color Doppler and spectral Doppler assessment of the carotid system bilaterally. This includes common carotid, internal carotid arteries Vertebral artery assessment with respect to direction of flow (antegrade or retrograde) FINDINGS: RIGHT carotid system: Assessment of plaque: Heterogeneous plaque formation. Tortuous right ICA Peak systolic ICA velocity: 95 cm/sec End-diastolic velocity: 8.1 cm/sec ICA/CCA ratio: 1.3 Vertebral artery flow: Antegrade LEFT carotid system: Assessment of plaque: Heterogeneous plaque formation. tortuous ICA primarily distally. Peak systolic ICA velocity: 84 cm/sec End-diastolic velocity: 14 cm/sec ICA/CCA ratio: 1.4 Vertebral artery flow: Antegrade IMPRESSION: Right ICA degree of stenosis: Less than 50% Left ICA degree of stenosis: Less than 50% Reference Internal Carotid Artery (ICA) Peak Systolic Velocity (PSV) for above: 1. Less than 50% stenosis less than 125 cm/s peak systolic velocity 2. 50-69% stenosis 125-230cm/s peak systolic velocity 3. Greater than 70% but less than near occlusion greater than 230 cm/s peak systolic velocity
[2016-10-13 14:45] LABS: BASO % 0.9 % (0.0-2.0); EOS # 0.1 K/uL (0.0-0.7); EOS % 1.4 % (0.0-4.0); HEMATOCRIT 34.3 % (34.0-47.0); LYMPH # 0.8 K/uL (1.0-4.3); LYMPH % 15.8 % (20.0-40.0); MEAN CORPUSCULAR HEMOGLOBIN 31.6 pg (27.0-31.0); MEAN CORPUSCULAR HGB CONC 32.6 g/dL (33.0-37.0); MEAN PLATELET VOLUME 10.7 fl (7.2-11.7); MONO # 0.4 K/uL (0.0-0.8); MONO % 8.5 % (0.0-10.0); NEUT # 3.7 K/uL (1.8-7.0); NEUT % 73.4 % (50.0-75.0); RED CELL DISTRIBUTION WIDTH 16.1 % (11.5-14.5)
--- NOTE | 2016-10-13 14:48 | EEG ---
DATE: 10/12/2016 INTRODUCTION: This is a digitally recorded EEG monitoring using standard EEG montages. BACKGROUND RHYTHM: The EEG shows a background activity of 8-9 Hz alpha activity in parietooccipital region. The EEG activity is bilaterally symmetrical and synchronous. There is attenuation of the ba ckground activity on eye opening. No sleep recording was noted. ABNORMAL POTENTIALS: No spikes, sharp waves or focal slowing was seen. PHOTIC STIMULATION AND HYPERVENTILATION: Photic stimulation did not reveal any abnormality. Hyperve ntilation was not performed. IMPRESSION: Normal electroencephalogram. No epileptiform activity seen in this electroencephalogram recording. Alex Meza MD cc: 142 TT: 10/13/2016 14:47:30 Confirmation # [id number] Dictation # [id number] mn
[2016-10-13 14:53] LABS: ALB/GLOB RATIO 1.3 (1.0-2.1); BILIRUBIN,TOTAL 0.4 mg/dl (0.2-1.3); CALCIUM 8.2 mg/dL (8.4-10.2); POTASSIUM 4.8 MMOL/L (3.6-5.0); TOTAL PROTEIN 5.8 G/DL (6.3-8.2)
--- NOTE | 2016-10-13 15:01 | CON ---
DATE: 10/13/2016 REASON FOR CONSULTATION: Seizure. HISTORY OF PRESENT ILLNESS: The patient is a 66-year-old female who has been asked for evaluation of seizure. The patient has end-stage renal disease and was in dialysis and brought here from there be cause she had questionable seizure. The patient was unable to speak and had some facial droop. In [facility] Emergency Room, patient had a seizure. Initially, it was thought the patient was having a stroke. At the moment, patient has no focal neurologic weakness. There are episodes during which she feels like she is going to have seizure during which she cannot speak and her vision gets blurred. Denies any focal weakness in arms or legs. REVIEW OF SYSTEMS: Denies any headache, chest pain, shortness of breath, abdominal pain, constipatio n, diarrhea, dysuria, pyuria, cough, sputum production. PAST MEDICAL HISTORY: Includes end-stage renal disease, on dialysis. CURRENT MEDICATIONS: Include azithromycin, Catapres, ceftriaxone, Keppra, Protonix, Tylenol, and Zes tril. ALLERGIES: LOSARTAN. SOCIAL HISTORY: Denies smoking, use of alcohol or illicit drugs. FAMILY HISTORY: Reviewed and noncontributory to the case. PHYSICAL EXAMINATION: GENERAL: The patient is an elderly pleasant female lying on the bed, in no acute distress. VITAL SIGNS: Her blood pressure is 151/60, heart rate 64 per minute, breathing at a rate of 16 per m inute, temperature is 97.7 degrees Fahrenheit. HEENT: Head is normocephalic, atraumatic. NECK: Supple. There are no carotid bruits. LUNGS: Clear. CARDIOVASCULAR: S1, S2 audible. No murmurs. ABDOMEN: Soft, nontender. Bowel sounds present. NEUROLOGIC EXAMINATION: MENTAL STATUS: The patient is awake, alert, oriented to time, place, person. Speech is fluent. Nam ing and repetition normal. Memory and cognition are intact. CRANIAL NERVES: Pupils are 3 mm bilaterally reactive to light. Visual jara are full. Extraocular movements are intact. There is no facial asymmetry. Palate is upgoing bilaterally and tongue is mi dline. MOTOR: Tone is normal. Power is 4/5 bilaterally in all extremities. REFLEXES: 1+ and symmetrical. Plantars downgoing bilaterally. LABORATORY DATA: Reviewed. Shows WBC of 9.8, hemoglobin of 13.6, hematocrit 42.3 and platelets of 1 78. INR is 1.1. Sodium 136, potassium 3.8, chloride ____, carbon dioxide content 23, BUN of 27, cre atinine 3.7, glucose of 169. IMPRESSION: 1. New onset seizure. 2. End-stage renal disease, on hemodialysis. RECOMMENDATIONS: 1. The patient to have MRI of the brain without contrast. 2. The patient had an electroencephalogram which is normal. 3. Since the patient had 2 episodes of seizure, will start patient on Keppra 250 mg twice a day. 4. The patient to have seizure precautions. 5. Please continue other treatment and supportive care. 6. Please follow up the MRI of the brain report. She had a CT scan of the head done which shows no acute intracranial pathology. Chronic left parietooccipital watershed zone infarct seen. 7. Consider starting patient on antiplatelet agent with history of old cerebrovascular accident. 8. No further neurologic recommendations. Please call neurology on an as-needed basis. Thank you for the opportunity to participate in the care of this patient. Alex Meza MD cc: 142 TT: 10/13/2016 15:00:44 Confirmation # [id number] Dictation # [id number] esequiel
[2016-10-13 15:08] LABS: MEAN CELL VOLUME 97.2 fl (81.0-99.0)
--- NOTE | 2016-10-13 16:30 | CP.PCM.PN ---
Subjective - Date & Time of Evaluation Date of Evaluation: 10/13/16 Time of Evaluation: 04:00 - Subjective Subjective: Currently on dialysis. Alert & talking Objective - Vital Signs/Intake and Output Vital Signs (last 24 hours): Temp Pulse Resp BP Pulse Ox 98.3 F 62 18 183/77 H 97 10/13/16 12:38 10/13/16 16:22 10/13/16 15:00 10/13/16 16:22 10/13/16 15:00 Intake and Output: 10/13/16 10/13/16 06:59 18:59 Intake Total 650 450 Output Total 0 Balance 650 450 - Medications Medications: Current Medications Acetaminophen (Tylenol 325mg Tab) 650 mg PO Q6H PRN PRN Reason: Headache Last Admin: 10/12/16 10:24 Dose: 650 mg Amlodipine Besylate (Norvasc) 5 mg PO DAILY [facility] Last Admin: 10/13/16 16:22 Dose: 5 mg Clonidine HCl (Catapres) 0.1 mg PO TID [facility] Last Admin: 10/13/16 12:59 Dose: 0.1 mg Heparin Sodium (Porcine) (Heparin) 5,000 units SC Q12 N[facility] PRN Reason: Protocol Ceftriaxone Sodium 1 gm/ (Sodium Chloride) 100 mls @ 100 mls/hr IVPB DAILY [facility] Last Admin: 10/13/16 09:45 Dose: Not Given Azithromycin 500 mg/ Sodium (Chloride) 250 mls @ 250 mls/hr IVPB DAILY [facility] Last Admin: 10/13/16 09:40 Dose: Not Given Levetiracetam (Keppra) 250 mg PO BID [facility] Last Admin: 10/13/16 09:48 Dose: 250 mg Lisinopril (Zestril) 20 mg PO DAILY [facility] Last Admin: 10/13/16 12:14 Dose: 20 mg Pantoprazole Sodium (Protonix Ec Tab) 40 mg PO DAILY [facility] Last Admin: 10/13/16 10:55 Dose: Not Given - Labs Labs: 10/13/16 14:00 10/13/16 14:00 PT 11.4 SECONDS (9.6-11.2) H 10/11/16 20:15 INR 1.10 (0.92-1.08) H 10/11/16 20:15 APTT 26.6 SECONDS (23.3-32.5) 10/11/16 20:15 - Respiratory Exam Additional comments: Lungs clear - Cardiovascular Exam Cardiovascular Exam: REGULAR RHYTHM - Extremities Exam Additional comments: No edema Assessment and Plan - Assessment and Plan (Free Text) Assessment: ESRD Hd dependent HTN Seizure disorder Plan: hyponatremia most likely dilutional Increase UF as tolerated HB stable Continue HD MWF
--- NOTE | 2016-10-13 23:45 | PN ---
DATE: 10/13/2016 SUBJECTIVE: The patient is seen today 10/13/2016 in the intensive care unit ___ __, no further seizures, but she was started on Keppra 250 mg twice a day by neurology. PHYSICAL EXAMINATION: VITAL SIGNS: Blood pressure 168/86, temperature 98.2, respiratory rate 18 and pulse 60. HEENT: Pupils equal, reactive to light. Normal-appearing mucosa of the conjunctivae, oropharyngeal and nasal membrane mucosa. NECK: Supple, no JVD, no carotid bruit, no lymph node, no thyromegaly. CHEST AND LUNGS: Bilateral symmetrical expansion, good air exchange, no rales, no rhonchi. CARDIOVASCULAR: PMI not localized. S1, S2. No additional sounds. ABDOMEN: Normoactive bowel sounds, no tenderness, no organomegaly, no masses. EXTREMITIES: No cyanosis, no clubbing, no edema. CENTRAL NERVOUS SYSTEM: Alert, awake, oriented x 2. No neurological deficits could be appreciated. ASSESSMENT: Seizure, congestive heart failure, acute on top of chronic diastolic heart failure, end-stage renal disease, on hemodialysis. 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 Patrick Hathaway MD cc: 167 TT: 10/13/2016 23:44:45 Confirmation # [id number] Dictation # [id number] esequiel BRUCE
[2016-10-14] MEDS ORDERED: cefTRIAXone (Rocephin) 1 gm Inj ONE (09:00)
[2016-10-14] MEDS ORDERED: Pantoprazole 40 mg EC Tab PO ONE (09:00)
[2016-10-14] MEDS ORDERED: Albuterol-Ipratrop 3 mg / 0.5 (3 ml) UD ONE (09:00)
--- NOTE | 2016-10-14 22:41 | PN ---
DATE: 10/14/2016 The patient was seen today 10/14/2016. She had no more seizures. The patient is not compliant to her antihypertensive medication and she keep refusing medicine. PHYSICAL EXAMINATION: VITAL SIGNS: Blood pressure 185/104, temperature 97.8, respiratory rate 15 and pulse is 64. HEENT: Pupils equal, reactive to light. Normal-appearing mucosa of the conjunctivae, oropharyngeal and nasal membrane mucosa. NECK: Supple, no JVD, no carotid bruit, no lymph node, no thyromegaly. CHEST AND LUNGS: Bilateral symmetrical expansion, good air exchange, no rales, no rhonchi. CARDIOVASCULAR: PMI not localized. S1, S2. No additional sounds. ABDOMEN: Normoactive bowel sounds, no tenderness, no organomegaly, no masses. EXTREMITIES: No cyanosis, no clubbing, no edema. CENTRAL NERVOUS SYSTEM: Alert, awake, oriented x 3. No neurological deficits could be appreciated. ASSESSMENT: Seizure disorder, congestive heart failure, acute on top of chronic diastolic heart fail ure, hypertension, end-stage renal disease on hemodialysis. PLAN: 1. Counseled this patient regarding the necessity of taking her antihypertensive medications. 2. Continue current medications. Patrick Hathaway MD cc: 167 TT: 10/14/2016 22:41:04 Confirmation # [id number] Dictation # [id number]
[2016-10-15] MEDS: Azithromycin 500 MG in Sodium Chloride 0.9% 250 ML IVPB SCH (08:30)
[2016-10-15] MEDS: Pantoprazole 40 mg EC Tab PO SCH (10:10)
--- NOTE | 2016-10-15 14:15 | CP.PCM.PCO ---
Assessment/Plan - Assessment/Plan Assessment: Patient seen and examined BP better controlled. Discussed with Dr Hathaway, pt to go home on lisinopril, enalapril, and clonidine rx provided Bette as per Neuro-dr ruiz. Pt counseled on taking her medications. For dc post dialysis.
[2016-10-15] MEDS ORDERED: Multivitamin Vitamin B Complex (Nephro-Vite) Tab PO SCH (14:45)
--- NOTE | 2016-10-15 16:49 | CP.PCM.PN ---
Subjective - Date & Time of Evaluation Date of Evaluation: 10/15/16 Time of Evaluation: 16:47 - Subjective Subjective: Follow up Nephrology Consultation Note Assessment: End stage renal disease on hemodialysis (MWF) via AVF: Anemia, Hyperphosphatemia, Secondary hyperparathyroidism, HTN Plan: Will plan for HD today as ordered. Continue with Nephrovite 1 tab/day. PRBC as needed for anemia. last Hb 11.2. Continue with phos binders home meds, BP control with meds as ordered. Patient on RAAS ko as Lisinopril Glycemic control, Dialysis consistent diet Further work up/management as per primary team Dose meds/antibiotics (if needed) for ESRD status. Avoid fleets enema/magnesium based laxatives. need to be compliant to meds Thanks for allowing me to participate in care of your patient. Will follow patient with you. Please call if any Qs. d/w ICU team. pt planned for d/c home today post HD Dr Angel Pepe Office: [phone] Subjective: Noted events overnight. Patients feels okay. Denies chest pain, palpitation, shortness of breath, leg swelling. No urinary complaints. hasn't been taking her meds. Physical Examination: General Appearance: Comfortable, in no acute respiratory distress, co- operative. Vitals reviewed and noted as below Lungs: Normal respiratory rate/effort. Breath sounds bilateral equal and clear Heart: Normal rate. s1s2 normal. No rub or gallop. Extremities: no edema. Neurological: Patient is alert, awake and oriented to person, place and time. No focal deficit. Strength bilateral appropriate and equal Skin: Warm and dry. Normal turgor. No rash. Palpitation: Normal elasticity for age Abdomen: Abdomen is soft. Bowel sounds +. There is no abdominal tenderness, no guarding/rigidity or organomegaly : kidney or bladder not palpable Access: has AVF Labs/imaging reviewed. Past medical history, past surgical history, family history, social history, allergy reviewed Objective - Vital Signs/Intake and Output Vital Signs (last 24 hours): Temp Pulse Resp BP Pulse Ox 97.5 F L 59 L 20 187/87 H 97 10/15/16 12:00 10/15/16 12:00 10/15/16 12:00 10/15/16 14:48 10/15/16 12:00 Intake and Output: 10/15/16 10/15/16 06:59 18:59 Intake Total 375 240 Balance 375 240 - Medications Medications: Current Medications Acetaminophen (Tylenol 325mg Tab) 650 mg PO Q6H PRN PRN Reason: Headache Last Admin: 10/12/16 10:24 Dose: 650 mg Amlodipine Besylate (Norvasc) 10 mg PO DAILY [facility] Last Admin: 10/15/16 14:48 Dose: 10 mg Clonidine HCl (Catapres) 0.1 mg PO Q8 [facility] Last Admin: 10/15/16 10:08 Dose: Not Given Heparin Sodium (Porcine) (Heparin) 5,000 units SC Q12 NEVAEH PRN Reason: Protocol Last Admin: 10/15/16 08:30 Dose: Not Given Ceftriaxone Sodium 1 gm/ (Sodium Chloride) 100 mls @ 100 mls/hr IVPB DAILY [facility] Last Admin: 10/15/16 08:30 Dose: Not Given Azithromycin 500 mg/ Sodium (Chloride) 250 mls @ 250 mls/hr IVPB DAILY [facility] Last Admin: 10/15/16 08:30 Dose: Not Given Levetiracetam (Keppra) 250 mg PO BID [facility] Last Admin: 10/15/16 10:11 Dose: 250 mg Lisinopril (Zestril) 20 mg PO DAILY [facility] Last Admin: 10/13/16 12:14 Dose: 20 mg Pantoprazole Sodium (Protonix Ec Tab) 40 mg PO DAILY [facility] Last Admin: 10/15/16 10:10 Dose: Not Given Vitamin B Complex/Vit C/Folic Acid (Nephro-Alyse) 1 tab PO DAILY [facility] - Labs Labs: 10/13/16 14:00 10/13/16 14:00 PT 11.4 SECONDS (9.6-11.2) H 10/11/16 20:15 INR 1.10 (0.92-1.08) H 10/11/16 20:15 APTT 26.6 SECONDS (23.3-32.5) 10/11/16 20:15
[2016-10-15 23:05] VITALS: BP 173/77; PULSE 60; RESP 15; TEMP 97.6; O2SAT 95
[2016-10-16] MEDS ORDERED: Multivitamin Vitamin B Complex (Nephro-Vite) Tab PO SCH (09:00)
--- NOTE | 2016-10-19 09:40 | PQF CVATIA ---
Dr. Hathaway pt was admitted with altered mental status and left facial droop. After study what is/are the final diagnosis/diagnoses for this case? This form is a permanent part of the medical record Clarification of your documentation is requested to better reflect the severity of illness and intensity of treatment of your patient. Indicators present: [x] Altered mental status [] Aphasia [] Dysphagia [] Dysphasia [x] Facial droop/numbness [] Gait disturbance [x] Hemiparesis/plegia [] Speech impairment [x] Weakness [x] Neuro Consult [x] CT/MRI Findings [] Other: [] Location in the medical record that reflects the above clinical findings: [] Treatment Provided: [] PHYSICIAN'S RESPONSE Based on your medical judgment of the clinical indicators outlined above, are you treating this patient for a known or suspected: [] Acute Cerebrovascular Accident (CVA) Please specify type i.e.; embolic, hemorrhagic, ischemic. Please specify the artery involved if known. [] Transient Ischemic Accident (TIA) [] Prolonged reversible ischemic neurological disorder [] Other, please indicate: [] [] If unable to determine, please check the box, sign and date. Present On Admission (POA) Indicator: [] Present at the time of admission [] Not present at the time of admission [] Clinically Undetermined In responding to this query, please exercise your independent professional judgment. The fact that a question is asked does not imply that any particular answer is desired or expected. Thank you for your clarification on this documentation. If you have any questions please call:[ ] * Thank you, [ ]Neha Ernst HIM Code Seziure MTDD
--- NOTE | 2016-10-19 09:42 | PQF PNEUMO ---
Dr. Hathaway pt was admitted with possible pneumonia. Was this diagnosis ruled in or out? This form is a permanent part of the medical record Clarification of your documentation is requested to better reflect the severity of illness and intensity of treatment of your patient. Indicators present [x] Documented diagnosis of pneumonia [] X-ray findings: [] Positive Sputum cultures [] Cough w/ fever [] Abnormal lungs sounds [] Poor gag reflex [] Speech consults/swallow evaluation [] Vent dependence [] Other: [] Location in the medical record that reflects the above clinical findings: [] Treatment Provided: [] PHYSICIAN'S RESPONSE Based on your medical judgment of the clinical indicators outlined above, are you treating this patient for a known or suspected: [] Aspiration pneumonia [] Community acquired pneumonia [] Ventilator associated pneumonia [] Viral pneumonia [] Bacterial pneumonia Please specify organism: [] [] Other, please indicate [] If Unable to Determine, please check the box, sign and date. Present On Admission (POA) Indicator: [] Present at the time of admission [] Not present at the time of admission [] Clinically Undetermined In responding to this query, please exercise your independent professional judgment. The fact that a question is asked does not imply that any particular answer is desired or expected. Thank you for your clarification on this documentation. If you have any questions please call:[ ] * Thank you, [ ]Neha Ernst slipcover cutter TEO
--- NOTE | 2016-10-19 17:51 | CARD ---
APPROVED REPORT EKG Measurement Heart [id number] <Conclusion> Normal sinus rhythm Possible Left atrial enlargement Left ventricular hypertrophy with repolarization abnormality Abnormal ECG
== END 2016-10-15 22:50 | disposition home or self-care (01) | DRG 543 ==
LOC: H.ER 18:50 → H.ERHOLD 20:58 → H.ICU/CCU 22:07
PROVIDERS: ADMIT Internal Medicine; ATTEND Internal Medicine
DX: I16.0 Hypertensive urgency (principal); I50.33 Acute on chronic diastolic (congestive) heart failure; I67.4 Hypertensive encephalopathy; N18.6 End stage renal disease; E87.1 Hypo-osmolality and hyponatremia; Q21.1 Atrial septal defect; N25.81 Secondary hyperparathyroidism of renal origin; G40.409 Other generalized epilepsy and epileptic syndromes, not intractable, without status epilepticus; I13.2 Hypertensive heart and chronic kidney disease with heart failure and with stage 5 chronic kidney disease, or end stage renal disease; Z99.2 Dependence on renal dialysis; R29.810 Facial weakness; E83.39 Other disorders of phosphorus metabolism; D64.9 Anemia, unspecified; Z91.14 Patient's other noncompliance with medication regimen; Z86.73 Personal history of transient ischemic attack (TIA), and cerebral infarction without residual deficits

== ENCOUNTER 2017-02-06 20:55 | Inpatient (IN) | payer MEDICAID ==
[2017-02-06] MEDS ORDERED: Albuterol-Ipratrop 3 mg / 0.5 (3 ml) UD INH STA (21:13)
[2017-02-06] MEDS ORDERED: Albuterol-Ipratrop 3 mg / 0.5 (3 ml) UD IH STA ×2 (21:13→21:14)
--- NOTE | 2017-02-06 21:19 | ED PDOC ---
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 with dyspnea when at home resting. Started suddenly. Denies any chest pain , weakness, numbness, headaches, dizziness, fever, cough. No abd pain, nausea, vomit, diarrhea. No calf pain or hormone tx. Gets dialysis M, W, F. Past Medical History Reviewed: Historical Data, Nursing Documentation, Vital Signs Vital Signs: Last Vital Signs Temp 98.1 F 02/06/17 21:02 Pulse 94 H 02/06/17 23:24 Resp 22 02/06/17 23:24 BP 179/85 H 02/06/17 23:24 Pulse Ox 100 02/06/17 23:24 - Medical History PMH: CVA, HTN, End Stage Renal Disease Denies: Arthritis, CHF, COPD, Hypercholesterolemia, Hypothyroidism, Pneumonia , Rheumatoid Arthritis - Surgical History Other surgeries: parathyroid surg - Family History Family History: States: Unknown Family Hx - Living Arrangements Living Arrangements: With Family - Social History Current smoker - smoking cessation education provided: No Alcohol: None Drugs: Denies - Home Medications Home Medications: Ambulatory Orders Medication Instructions Recorded Lisinopril [Zestril] 20 mg PO DAILY #30 tab 10/15/16 Vitamin B Complex/Vit C/Folic 1 tab PO DAILY #90 tab 10/15/16 [Nephro-Alyse] amLODIPine [Norvasc] 10 mg PO DAILY #30 tab 10/15/16 cloNIDine [Catapres] 0.1 mg PO Q8 #90 10/15/16 levETIRAcetam [Keppra] 250 mg PO BID #60 tab 10/15/16 - Allergies Allergies/Adverse Reactions: Allergies Allergy/AdvReac Type Severity Reaction Status Date / Time No Known Allergies Allergy Verified 02/06/17 21:02 Review of Systems ROS Statement: Except As Marked, All Systems Reviewed And Found Negative Respiratory: Positive for: Shortness of Breath Physical Exam - Reviewed Nursing Documentation Reviewed: Yes Vital Signs Reviewed: Yes - Physical Exam Appears: Positive for: Uncomfortable Head Exam: Positive for: ATRAUMATIC, NORMAL INSPECTION, NORMOCEPHALIC Skin: Positive for: Normal Color, Warm, DRY Eye Exam: Positive for: EOMI, Normal appearance, PERRL ENT: Positive for: Normal ENT Inspection Neck: Positive for: Normal, Painless ROM, Supple Cardiovascular/Chest: Positive for: Regular Rate, Rhythm. Negative for: Edema Respiratory: Positive for: Decreased Breath Sounds, Accessory Muscle Use (mild) , Other (coarse breath sounds b/l) Gastrointestinal/Abdominal: Positive for: Normal Exam, Bowel Sounds, Soft. Negative for: Tenderness Back: Positive for: Normal Inspection. Negative for: L CVA Tenderness, R CVA Tenderness Extremity: Positive for: Normal ROM. Negative for: Tenderness, Pedal Edema Neurologic/Psych: Positive for: Alert, Oriented. Negative for: Motor/Sensory Deficits - Laboratory Results Result Diagrams: 02/06/17 21:34 02/06/17 21:34 Interpretation Of Abn Labs: 6.3k - ECG ECG: Positive for: Interpreted By Me, Viewed By Me ECG Rhythm: Positive for: Sinus Rhythm, ST/T Changes (inferior leads: T INVERTED AND ST DEPRESSION ) O2 Sat by Pulse Oximetry: 82 Pulse Ox Interpretation: Abnormal Interpretation Of Abnormal: improved with oxygen - Radiology X-Ray: Interpreted by Me, Viewed By Me X-Ray Interpretation: Cardiomegaly, Other (vascular congestion) - Progress ED Course And Treament: 2120: Family and pt. refusing bipap. States nasal oxygen helping a lot and feels comfortable now. 2209: Family and pt. refusing ABG, VBG, further blood work, further attempts at an IV line. They do not know they pcp. Per records possibly Dr. Hathaway. Per Dr. Hathaway he does not recall pt. Will admit to med diffusion operator. 2215: Spoke with Dr. Davis, will admit ICU. Spoke with Dr. Cook, will admit ICU. 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 2230: Stable. Speaking in full sentences. Spoke with Dr. Hong. Wants calcium gluconate 1amp. Agree will hold on insulin and d50 as pt. iv is small and peripheral and pt. refuses further IV attempt. Do not want lose IV with d50 push. Dr. Hong will give dialysis orders when dialysis nurse comes (has been called). 2238: Spoke with dialysis nurse. Will be in for dialysis in 1hr. - Critical Care Total Time (In Min): 60 Documented Critical Care: Time excludes all time spent performint seperately billable procedures Disposition - Clinical Impression Clinical Impression: Renal failure, CHF (congestive heart failure), Hyperkalemia - Patient ED Disposition Is Patient to be Admitted: Yes Counseled Patient/Family Regarding: Studies Performed, Diagnosis - Disposition Disposition Time: 22:42 Condition: CRITICAL - Pt Status Changed To: Hospital Disposition Of: Inpatient - Admit Certification Admit to Inpatient:: After my assessment, the patient will require hospitalization for at least two midnights. This is because of the severity of symptoms shown, intensity of services needed, and/or the medical risk in this patient being treated as an outpatient. - POA Present On Arrival: None
[2017-02-06] MEDS ORDERED: Albuterol-Ipratrop 3 mg / 0.5 (3 ml) UD ONE (21:37)
[2017-02-06 21:45] LABS: BASO # 0.1 K/uL (0.0-0.2); BASO % 0.7 % (0.0-2.0); EOS # 0.6 K/uL (0.0-0.7); EOS % 4.3 % (0.0-4.0); HEMATOCRIT 36.1 % (34.0-47.0); LYMPH # 5.8 K/uL (1.0-4.3); LYMPH % 41.8 % (20.0-40.0); MEAN CELL VOLUME 99.8 fl (81.0-99.0); MEAN CORPUSCULAR HEMOGLOBIN 31.1 pg (27.0-31.0); MEAN CORPUSCULAR HGB CONC 31.2 g/dL (33.0-37.0); MEAN PLATELET VOLUME 10.4 fl (7.2-11.7); MONO # 1.3 K/uL (0.0-0.8); MONO % 9.7 % (0.0-10.0); NEUT % 43.5 % (50.0-75.0); NRBC % 0.1 % (0.0-0.0); RED CELL DISTRIBUTION WIDTH 17.1 % (11.5-14.5); WHITE BLOOD COUNT 13.7 K/uL (4.8-10.8)
[2017-02-06 21:54] LABS: ALB/GLOB RATIO 1.1 (1.0-2.1); BILIRUBIN,TOTAL 0.7 mg/dl (0.2-1.3); CALCIUM 10.8 mg/dL (8.4-10.2); MAGNESIUM 2.2 MG/DL (1.6-2.3); PHOSPHOROUS 5.8 mg/dl (2.5-4.5); TOTAL PROTEIN 8.3 G/DL (6.3-8.2)
[2017-02-06 22:14] LABS: POTASSIUM 6.3 MMOL/L (3.6-5.0)
[2017-02-06] MEDS ORDERED: Nitroglycerin 2% Ointment Foilpak UD TOP ONE (22:20)
[2017-02-06 22:21] LABS: PARTIAL THROMBOPLASTIN TIME 33.5 Seconds (25.6-37.1)
[2017-02-06] MEDS ORDERED: Calcium Gluconate 4.65 mEq/10 ml Inj IV STA (22:25)
[2017-02-06] MEDS ORDERED: Nitroglycerin 2% 15 INCH/30 GM TUBE TOP STA (22:30)
[2017-02-06] MEDS ORDERED: Sod Polystyrene Sulf 15 gm/60 ml Oral Susp PO STA (22:30)
--- NOTE | 2017-02-06 22:31 | CP.PCM.CON ---
History of Present Illness - History of Present Illness History of Present Illness: CC: Elevated BP HPI: This is a 66 y/o female with ESRD on HD (M/W/F), HTN, ?seizure disorder brought in by EMS with severely elevated SBP (200+). Patient does not provide much other history. States she has been taking all of her medications including clonidine. Denies any changes in her diet or fluid intake. Patient has been admitted in the past with the same problem. In the past she has been non-compliant with her BP medications. ROS: 14 systems reviewed, negative other than HPI MHx: ESRD on HD M/W/F, HTN, possible seizure disorder SHx: Thyroid surgery?, one donated kidney, surgery for trauma, and GI tumor surgery with temporary colostomy Allergies: Losartan recorded in the past Medications: Unknown currently Family Hx: Patient/family cannot provide Social Hx: Lives with family, no EtOH, no tobacco Surrogate Dec Mkr: Son Past Patient History - Past Social History Alcohol: None Drugs: Denies - CARDIAC Hx Congestive Heart Failure: No Hx Hypercholesterolemia: No Hx Hypertension: Yes - PULMONARY Hx Chronic Obstructive Pulmonary Disease (COPD): No Hx Pneumonia: No - NEUROLOGICAL HX Cerebrovascular Accident: Yes (2001) - RENAL Hx Renal Failure: No - ENDOCRINE/METABOLIC Hx Hypothyroidism: No - HEMATOLOGICAL/ONCOLOGICAL Hx Cancer: No - MUSCULOSKELETAL/RHEUMATOLOGICAL Hx Arthritis: No Hx Rheumatoid Arthritis: No - GASTROINTESTINAL Hx Gastroesophageal Reflux: No - PSYCHIATRIC Hx Substance Use: No - ANESTHESIA Hx Anesthesia: Yes Hx Anesthesia Reactions: No Hx Malignant Hyperthermia: No Meds Allergies/Adverse Reactions: Allergies Allergy/AdvReac Type Severity Reaction Status Date / Time No Known Allergies Allergy Verified 02/06/17 21:02 Physical Exam - Constitutional Appears: Chronically Ill - Head Exam Head Exam: ATRAUMATIC, NORMOCEPHALIC - Eye Exam Eye Exam: EOMI, PERRL - ENT Exam ENT Exam: Mucous Membranes Moist - Neck Exam Neck exam: Positive for: Full Rom - Respiratory Exam Respiratory Exam: Rales, Rhonchi - Cardiovascular Exam Cardiovascular Exam: REGULAR RHYTHM, +S1, +S2 - GI/Abdominal Exam GI & Abdominal Exam: Normal Bowel Sounds, Soft - Extremities Exam Extremities exam: Positive for: full ROM, normal inspection Additional comments: RUE fistula - Neurological Exam Neurological exam: Alert, CN II-XII Intact, Oriented x3 - Psychiatric Exam Psychiatric exam: Normal Affect, Normal Mood - Skin Skin Exam: Dry, Warm Results - Vital Signs Recent Vital Signs: Last Vital Signs Temp 98.1 F 02/06/17 21:02 Pulse 114 H 02/06/17 21:02 Resp 26 H 02/06/17 21:02 BP 220/112 H 02/06/17 22:08 Pulse Ox 82 L 02/06/17 22:20 - Labs Result Diagrams: 02/06/17 21:34 02/06/17 21:34 Labs: Laboratory Results - last 24 hr 02/06/17 02/06/17 02/06/17 21:34 21:34 21:34 WBC 13.7 H D RBC 3.62 L Hgb 11.3 L Hct 36.1 MCV 99.8 H D MCH 31.1 H MCHC 31.2 L RDW 17.1 H Plt Count 302 D MPV 10.4 Neut % (Auto) 43.5 L Lymph % (Auto) 41.8 H [place] % (Auto) 9.7 Eos % (Auto) 4.3 H Baso % (Auto) 0.7 Neut # 6.0 Lymph # 5.8 H [place] # 1.3 H Eos # 0.6 Baso # 0.1 PT 11.5 INR 1.1 APTT 33.5 Sodium 136 Potassium 6.3 H* D Chloride 96 L Carbon Dioxide 22 Anion Gap 24 H BUN 57 H Creatinine 6.6 H Est GFR ( Amer) 8 Est GFR (Non-Af Amer) 6 Random Glucose 142 H Calcium 10.8 H Phosphorus 5.8 H Magnesium 2.2 Total Bilirubin 0.7 AST 75 H ALT 57 H D Alkaline Phosphatase 188 H NT-Pro-B Natriuret Pep [id number] H Total Protein 8.3 H Albumin 4.3 Globulin 4.0 H Albumin/Globulin Ratio 1.1 Assessment & Plan (1) Hypertensive urgency Assessment and Plan: 66 y/o female with multiple medical problems coming in with severely elevated BP and possible FPE/vol overload. 1) FPE/Vol overload, uncontrolled BP -Given Nitro paste + Lasix IV -Renal consulted/aware, plan for urgent dialysis this evening 2) Hyper-K -- patient received cocktail for hyper-K and Kayexalate in ER; re- eval after HD 3) DVT PPx -- SCDs only Status: Acute (2) Flash pulmonary edema Status: Acute (3) Hyperkalemia Status: Acute (4) ESRD (end stage renal disease) on dialysis Status: Acute (5) DVT prophylaxis Status: Acute
[2017-02-06] MEDS ORDERED: Sodium Bicarbonate 7.5% (0.9 MEQ/ML) 50ML INJ IV ONE (22:39)
[2017-02-06 23:00] LABS: TROPONIN I 0.295 ng/mL (0.00-0.120)
--- NOTE | 2017-02-07 07:40 | CARD ---
APPROVED REPORT EKG Measurement Heart [id number] AL [id number] [id number] <Conclusion> Sinus tachycardia Biatrial enlargement ST & T wave abnormality, consider inferior ischemia Abnormal ECG
--- NOTE | 2017-02-07 08:33 | RAD ---
HISTORY: Sepsis Patient COMPARISON: 10/11/2016 FINDINGS: LUNGS: Chronic or recurrent changes in the lungs primarily moderate -severe in asymmetrical pulmonary edema. PLEURA: No significant pleural effusion identified, no pneumothorax apparent. CARDIOVASCULAR: Cardiomegaly/presumed cardiogenic pulmonary edema. OSSEOUS STRUCTURES: No significant abnormalities. VISUALIZED UPPER ABDOMEN: Normal. OTHER FINDINGS: None. IMPRESSION: Pulmonary edema a similar to that seen on the prior study with respect to asymmetry in severity. Concordant results with the preliminary interpretation rendered by the emergency department physician procedure.
[2017-02-07] MEDS: Multivitamin Vitamin B Complex (Nephro-Vite) Tab PO SCH (09:40)
--- NOTE | 2017-02-07 11:52 | CP.CCUPN ---
CCU Subjective - Physician Review Subjective (Free Text): Awake and responsive, has refused AM bloodwork, last known K= 6.3 and Trop = 0.295 before overnight HD, 3.0 liters removed. Denies any chest discomfort, chills, nausea, diaphoresis, exertional dyspnea, cough, SOB at bed rest. Other vitals and I/Os reviewed. No fever spikes noted. SBP down to 150-160 s. HR less tachycardic. ROS: denies any new symptoms and no other pertinent negs or positives on 10+ system review. PMSFH: All Nursing and physician documentation reviewed to date; no new pertinent info noted relevant to current medical problems. MAJOR PROBLEMS: 1. Hyperkalemia with ESRD on HD 2. Acclerated HTN 3. Pulm Edema, r/o Acute-Subacute NH versus Pneumonia 4. Chronic disease anemia 5. Seizure disorder by history?? PLAN: 1. Unknown if hyperkalemia has resolved or not post Acute HD. 2. Needs repeat serial Trops, too. ECHO if patient allows. Cardio eval orderd by PMD already. 3. Stable for Tele bed. CCU Objective - Vital Signs / Intake & Output Vital Signs (Last 4 hours): Vital Signs Temp Pulse Resp BP Pulse Ox 02/07/17 09:41 79 165/72 H 02/07/17 09:40 79 165/72 H 02/07/17 08:00 98.6 F 75 18 161/65 H 96 Intake and Output (Last 8hrs): Intake & Output 02/06/17 02/07/17 02/07/17 22:59 06:59 14:59 Intake Total 0 Balance 0 Intake: IV 0 - Physical Exam Head: Positive for: Normocephalic Pupils: Positive for: PERRL Extroacular Muscles: Positive for: EOMI Conjunctiva: Positive for: Normal. Negative for: Icteric Mouth: Positive for: Moist Mucous Membranes Neck: Negative for: JVD Respiratory/Chest: Positive for: Decreased Breath Sounds, Rales. Negative for: Accessory Muscle Use Cardiovascular: Positive for: Regular Rate and Rhythm. Negative for: Rub Abdomen: Positive for: Normal Bowel Sounds. Negative for: Tenderness, Distention Lower Extremity: Positive for: Edema, NORMAL PULSES. Negative for: CALF TENDERNESS, Cyanosis Neurological: Positive for: GCS=15, Motor Func Grossly Intact, Normal Sensory Function Skin: Positive for: Warm. Negative for: Rashes - Medications Active Medications: Active Medications Generic Name Dose Route Start Last Admin Trade Name Freq PRN Reason Stop Dose Admin Acetaminophen 650 mg 02/06/17 22:56 02/06/17 23:08 Tylenol 325mg Tab PO 650 mg Q6 PRN Administration Headache Amlodipine Besylate 10 mg 02/07/17 09:00 02/07/17 09:41 Norvasc PO 10 mg DAILY [facility] Administration Clonidine HCl 0.1 mg 02/07/17 09:00 02/07/17 09:40 Catapres PO 0.1 mg Q8 [facility] Administration Levetiracetam 250 mg 02/07/17 09:00 02/07/17 09:40 Keppra PO 250 mg BID [facility] Administration Vitamin B Complex/Vit C/Folic Acid 1 tab 02/07/17 09:00 02/07/17 09:40 Nephro-Alyse PO 1 tab DAILY [facility] Administration Review of Systems - Review of Systems All systems: reviewed and no additional remarkable complaints except (as above) Critical Care Progress Note - Nutrition Nutrition: Nutrition Category Date Time Status Renal Diet [DIET] Diets 02/06/17 Breakfast Active
--- NOTE | 2017-02-07 15:31 | CP.PCM.CON ---
History of Present Illness - History of Present Illness History of Present Illness: Consult requested for evaluation of +ve TnI and flash pulmonary edema HPI: Mrs. Beverly CUADRA is a pleasant 66-year-old female with past medical history significant for end-stage renal disease on hemodialysis for the last 20 years, hypertension, coronary artery disease status post angioplasty and stenting done in 2006 at [facility] by Dr. Perez, had repeat cardiac catheterization in 2012 at which time she was told she has [id number] coronary artery disease. She was recently seen last month at [facility] by a dba and had undergone a nuclear stress test. According to the patient she was told that the results of stress test were unremarkable. She now presents with an episode of acute onset CVA or shortness of breath. According to the patient she was feeling fine the whole day went to dinner with her son and after dinner she went to bed around 8 PM. She woke up at 8:30 PM half an hour later with of the sensation of a choking spell and severely short of breath. At baseline she is at NYHA Andra class II dyspnea denies having any episodes of chest pains she had undergone echocardiogram and [facility] back in September 2016 at which time she had normal ejection fraction with moderate to severe mitral regurgitation. Review of Systems - Review of Systems All systems: reviewed and no additional remarkable complaints except - Constitutional Constitutional: As Per HPI - EENT Eyes: As Per HPI Ears: As Per HPI Nose/Mouth/Throat: As Per HPI - Breasts Breasts: As Per HPI - Cardiovascular Cardiovascular: As Per HPI, Dyspnea on Exertion - Respiratory Respiratory: As Per HPI, Dyspnea - Gastrointestinal Gastrointestinal: As Per HPI - Genitourinary Genitourinary: As Per HPI - Reproductive: Female Reproductive:Female: As Per HPI - Musculoskeletal Musculoskeletal: As Per HPI - Integumentary Integumentary: As Per HPI - Neurological Neurological: As Per HPI - Psychiatric Psychiatric: As Per HPI - Endocrine Endocrine: As Per HPI - Hematologic/Lymphatic Hematologic: As Per HPI Past Patient History - Past Medical History & Family History Past Medical History?: Yes Pertinent Family History: +ve for HTN and DM - Past Social History Smoking Status: Former Smoker - CARDIAC Hx Cardiac Disorders: Yes Hx Hypertension: Yes - PULMONARY Hx Respiratory Disorders: No - NEUROLOGICAL Hx Neurological Disorder: Yes - HEENT Hx HEENT Problems: Yes - RENAL Hx Chronic Kidney Disease: Yes - ENDOCRINE/METABOLIC Hx Endocrine Disorders: No - HEMATOLOGICAL/ONCOLOGICAL Hx Blood Disorders: Yes - INTEGUMENTARY Hx Dermatological Problems: No - MUSCULOSKELETAL/RHEUMATOLOGICAL Hx Musculoskeletal Disorders: Yes - GASTROINTESTINAL Hx Gastroesophageal Reflux: No Hx Ileostomy: Yes Other/Comment: GI tumor/ Incontinent of stool. - GENITOURINARY/GYNECOLOGICAL Hx Genitourinary Disorders: Yes - PSYCHIATRIC Hx Psychophysiologic Disorder: Yes - SURGICAL HISTORY Hx Section: Yes (3) Other/Comment: GI tumor removal, parathyroid sx. - ANESTHESIA Hx Anesthesia: Yes Hx Anesthesia Reactions: No Hx Malignant Hyperthermia: No Has any member of the family had a problem w/ anesthesia?: No Meds Allergies/Adverse Reactions: Allergies Allergy/AdvReac Type Severity Reaction Status Date / Time No Known Allergies Allergy Verified 02/06/17 21:02 - Medications Medications: Current Medications Acetaminophen (Tylenol 325mg Tab) 650 mg PO Q6 PRN PRN Reason: Headache Last Admin: 02/06/17 23:08 Dose: 650 mg Amlodipine Besylate (Norvasc) 10 mg PO DAILY [facility] Last Admin: 02/07/17 09:41 Dose: 10 mg Atorvastatin Calcium (Lipitor) 80 mg PO DAILY [facility] Clonidine HCl (Catapres) 0.1 mg PO Q8 [facility] Last Admin: 02/07/17 09:40 Dose: 0.1 mg Clopidogrel Bisulfate (Plavix) 75 mg PO DAILY [facility] Levetiracetam (Keppra) 250 mg PO BID [facility] Last Admin: 02/07/17 09:40 Dose: 250 mg Metoprolol Tartrate (Lopressor) 25 mg PO Q12 [facility] Vitamin B Complex/Vit C/Folic Acid (Nephro-Alyse) 1 tab PO DAILY [facility] Last Admin: 02/07/17 09:40 Dose: 1 tab Physical Exam - Constitutional Appears: Well - Head Exam Head Exam: ATRAUMATIC, NORMAL INSPECTION, NORMOCEPHALIC - Eye Exam Eye Exam: EOMI, Normal appearance, PERRL Pupil Exam: NORMAL ACCOMODATION, PERRL - ENT Exam ENT Exam: Mucous Membranes Moist, Normal Exam - Neck Exam Neck exam: Positive for: Normal Inspection - Respiratory Exam Respiratory Exam: Rales, NORMAL BREATHING PATTERN - Cardiovascular Exam Cardiovascular Exam: REGULAR RHYTHM, +S1, +S2, Systolic Murmur - GI/Abdominal Exam GI & Abdominal Exam: Normal Bowel Sounds, Soft. absent: Tenderness - Extremities Exam Extremities exam: Positive for: normal inspection - Back Exam Back exam: NORMAL INSPECTION - Neurological Exam Neurological exam: Alert, CN II-XII Intact, Oriented x3, Reflexes Normal - Psychiatric Exam Psychiatric exam: Normal Affect, Normal Mood - Skin Skin Exam: Dry, Intact, Normal Color, Warm Results - Vital Signs Recent Vital Signs: Last Vital Signs Temp 98.6 F 02/07/17 08:00 Pulse 79 02/07/17 09:41 Resp 18 02/07/17 08:00 BP 165/72 H 02/07/17 09:41 Pulse Ox 96 02/07/17 08:00 - Labs Result Diagrams: 02/06/17 21:34 02/06/17 21:34 Labs: Laboratory Results - last 24 hr 02/07/17 06:00 Hep Bs Antigen Negative Hep B Core IgM Ab Negative Assessment & Plan (1) Troponin level elevated Assessment and Plan: 2' to strain from uncontrolled HTN vs. underlying CAD EKG shows ST depressions in inferolateral leads repeat echo to assess WMA keep pt on IV heparin per [facility] protocol repeat TnI x 3 asa, plavix BB statins Status: Acute (2) CHF (congestive heart failure) Assessment and Plan: Acute diastolic CHF 2' to uncontrolled HTN Etiology ? 2' to CAD vs JHOAN vs. CKD monitor on telemetry fluid removal with HD cont with ACEi ( home meds ) add BB will need to review reports of her recent stress testing at OSH and also cath reports from [facility] in 2006 and 2012 Status: Acute (3) Flash pulmonary edema Assessment and Plan: etiology ? 2' to uncontrolled HTN vs. CAD vs. JHOAN vs. CKD continue to remove fluid with HD BP control lasix prn add BB and peripheral vasodilators Status: Acute (4) ESRD (end stage renal disease) on dialysis Assessment and Plan: per nephro Status: Acute (5) Hyperkalemia Status: Acute (6) Hypertensive urgency Assessment and Plan: on clonidine and norvasc add BB will evalute if peripheral vasodilators needed in 24 hours Status: Acute (7) Uncontrolled hypertension Status: Acute
[2017-02-07 19:41] LABS: CALCIUM 9.4 mg/dL (8.4-10.2)
[2017-02-07 20:10] VITALS: BMI 22.6
[2017-02-07 21:23] LABS: HEMATOCRIT 29.9 % (34.0-47.0); MEAN CELL VOLUME 97.9 fl (81.0-99.0); MEAN CORPUSCULAR HEMOGLOBIN 31.3 pg (27.0-31.0); RED CELL DISTRIBUTION WIDTH 17.3 % (11.5-14.5); WHITE BLOOD COUNT 10.9 K/uL (4.8-10.8)
[2017-02-07 21:45] LABS: PARTIAL THROMBOPLASTIN TIME 28.4 Seconds (25.6-37.1)
[2017-02-07] MEDS: Heparin 25,000units in D5W 25,000 UNITS/250 ML BAG IV SCH (23:00)
--- NOTE | 2017-02-08 00:03 | HP ---
CHIEF COMPLAINT: Shortness of breath. HISTORY OF PRESENT ILLNESS: This is 66-year-old female, known case of end-stage renal disease, hypertension, seizure disorder who was having shortness of breath. The patient was brought to the emergency room and was admitted to the intensive care unit after finding fluid overload and elevated blood pressure. REVIEW OF SYSTEMS: Positive for shortness of breath and dyspnea. Review of systems otherwise is negative for headache, dizziness, syncope, loss of consciousness, chest pain, abdominal pain, nausea, vomiting, diarrhea, constipation, or any new joint or extremity pain. Review of systems is all other organ systems is unremarkable. PAST MEDICAL HISTORY: Significant for hypertension, end-stage renal disease, seizure disorder. PAST SURGICAL HISTORY: Significant for thyroid surgery, trauma related surgery, gastric tumor resection and kidney donation surgery. PERSONAL HISTORY: The patient is currently nonsmoker, nondrinker, no substance abuse and lives with her family. MEDICATIONS: The patient is on medication as per reconciliation. ALLERGIES: THE PATIENT IS ALLERGIC TO RECENTLY LOSARTAN, BUT THE PATIENT DOES NOT REMEMBER ALLERGIC REACTION. PHYSICAL EXAMINATION GENERAL: A well-built and well-nourished 66-year-old female in no acute distress. VITAL SIGNS: Temperature 98.1, pulse 72, respirations 17, blood pressure 154/50, saturation 93%. HEENT: Pupils reacting to light. No JVD, no thyromegaly, no lymphadenopathy. No nystagmus. Normocephalic and atraumatic skull. HEART: S1 and S2 normal and regular. No significant murmur, gallop, or rub is heard. LUNGS: Exam shows good bilateral air exchange. Occasional basal crepitation. No rhonchi. ABDOMEN: Soft, nontender. No organomegaly. No fluid. Bowel sounds are plus. EXTREMITIES: No edema. No calf swelling or tenderness. No acute ischemia. 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 DIAGNOSTIC DATA: Available diagnostic data reviewed. Telemetry monitoring does not reveal significant arrhythmias. ProBNP level is 137,000, troponin level is 0.79, AST 75, ALT of 57. Sodium 136, potassium 6.3, chloride 96, bicarb 22, BUN 57, creatinine 6.6. WBC 13.7, hemoglobin 11.3, hematocrit 36.1, platelets 302. EKG does not reveal acute ST-T changes. Chest x-ray shows fluid overload. ADMITTING IMPRESSION: End-stage renal disease with fluid overload; coronary artery disease; electrolyte imbalance; end-stage renal disease, on dialysis; uncontrolled hypertension; questionable seizure disorder. PLAN: As ordered. Case and plan discussed with patient. The patient is being uncooperative and refuses blood blood work as ordered. Prateek Davis MD
[2017-02-08 05:33] LABS: HEMATOCRIT 31.8 % (34.0-47.0); MEAN CELL VOLUME 98.8 fl (81.0-99.0); MEAN CORPUSCULAR HEMOGLOBIN 31.4 pg (27.0-31.0); MEAN CORPUSCULAR HGB CONC 31.7 g/dL (33.0-37.0); RED CELL DISTRIBUTION WIDTH 17.4 % (11.5-14.5); WHITE BLOOD COUNT 9.7 K/uL (4.8-10.8)
[2017-02-08 05:35] LABS: ALB/GLOB RATIO 1.1 (1.0-2.1); ALKALINE PHOSPHATASE 124 U/L (38-126); ALT/SGPT 58 U/L (9-52); AST/SGOT 72 U/L (14-36); BILIRUBIN,TOTAL 0.5 mg/dl (0.2-1.3); BLOOD UREA NITROGEN 50 mg/dl (7-17); CALCIUM 9.3 mg/dL (8.4-10.2); CARBON DIOXIDE 28 mmol/L (22-30); CHLORIDE 95 mmol/L (98-107); CHOLESTEROL 160 mg/dL (0-199); GFR AFRICAN-AMERICAN 9; GLUCOSE,RANDOM 99 mg/dL (65-105); POTASSIUM 4.8 MMOL/L (3.6-5.0); SODIUM 136 mmol/l (132-148); TOTAL PROTEIN 6.9 G/DL (6.3-8.2)
--- NOTE | 2017-02-08 08:29 | CP.PCM.PN ---
Subjective - Date & Time of Evaluation Date of Evaluation: 02/08/17 Time of Evaluation: 14:10 - Subjective Subjective: patient transferred for cardiac cateterization this morning Objective - Vital Signs/Intake and Output Vital Signs (last 24 hours): Temp Pulse Resp BP Pulse Ox 98.4 F 77 20 181/87 H 92 L 02/08/17 06:00 02/08/17 08:27 02/08/17 06:00 02/08/17 08:27 02/08/17 06:00 Intake and Output: 02/08/17 02/08/17 06:59 18:59 Intake Total 162 Balance 162 - Medications Medications: Current Medications Acetaminophen (Tylenol 325mg Tab) 650 mg PO Q6 PRN PRN Reason: Headache Last Admin: 02/06/17 23:08 Dose: 650 mg Amlodipine Besylate (Norvasc) 10 mg PO DAILY [facility] Last Admin: 02/08/17 08:27 Dose: 10 mg Atorvastatin Calcium (Lipitor) 80 mg PO DAILY [facility] Last Admin: 02/08/17 08:27 Dose: 80 mg Clonidine HCl (Catapres) 0.1 mg PO Q8 [facility] Last Admin: 02/08/17 08:26 Dose: 0.1 mg Clopidogrel Bisulfate (Plavix) 75 mg PO DAILY [facility] Last Admin: 02/07/17 16:47 Dose: 75 mg Heparin Sodium/Dextrose (Heparin 25,000 Units/250ml In D5w) 25,000 units in 250 mls @ 7 mls/hr IV .Q24H NEVAEH PRN Reason: Protocol Last Titration: 02/08/17 06:23 Dose: 9 mls/hr Levetiracetam (Keppra) 250 mg PO BID [facility] Last Admin: 02/08/17 08:27 Dose: 250 mg Metoprolol Tartrate (Lopressor) 25 mg PO Q12 [facility] Last Admin: 02/08/17 08:27 Dose: 25 mg Vitamin B Complex/Vit C/Folic Acid (Nephro-Alyse) 1 tab PO DAILY [facility] Last Admin: 02/07/17 09:40 Dose: 1 tab - Labs Labs: 02/08/17 04:40 02/08/17 04:40 PT 11.7 Seconds (9.8-13.1) 02/08/17 04:40 INR 1.1 (0.9-1.2) 02/08/17 04:40 APTT 31.0 Seconds (25.6-37.1) 02/08/17 04:40
--- NOTE | 2017-02-08 08:35 | CARD ---
APPROVED REPORT EXAM: Two-dimensional and M-mode echocardiogram with Doppler and color Doppler. Other Information Quality : GoodRhythm : NSR INDICATION Non STEMI 2D DIMENSIONS IVSd1.05 (0.7-1.1cm)LVDd5.14 (3.9-5.9cm) LVOT Diameter1.89 (1.8-2.4cm)PWd1.38 (0.7-1.1cm) IVSs1.30 (0.8-1.2cm)LVDs3.97 (2.5-4.0cm) FS (%) 22.7 %PWs1.80 (0.8-1.2cm) M-Mode DIMENSIONS Left Atrium (MM)5.97 (2.5-4.0cm)IVSd1.19 (0.7-1.1cm) Aortic Root3.22 (2.2-3.7cm)LVDd6.34 (4.0-5.6cm) Aortic Cusp Exc.2.28 (1.5-2.0cm)PWd1.31 (0.7-1.1cm) IVSs1.72 cmFS (%) 31 % LVDs4.41 (2.0-3.8cm)PWs1.47 cm Mitral Valve MV E Komkhqko098.0cm/sMV DECEL LEAT382lsME A Rvrwvzjt422.5cm/s MV QKO64peI/A ratio1.0MVA (PHT)4.69cm2 TDI Medial E' Peak V6.76cm/sE/Lateral E'0.0E/Medial E'18.2 Pulmonary Valve PV Peak Hqamrjqy474.9cm/s Tricuspid Valve TR Peak [id number]/sRAP [id number] Peak Gr.30mmHg [id number] LEFT VENTRICLE The left ventricle is normal size. There is mild concentric left ventricular hypertrophy. Left ventricle systolic function is normal. The Ejection Fraction is 60-65%. There is normal LV segmental wall motion. Transmitral Doppler flow pattern is Grade I-abnormal relaxation pattern. RIGHT VENTRICLE The right ventricle is normal size. There is normal right ventricular wall thickness. The right ventricular systolic function is normal. ATRIA The left atrium is moderately dilated. The right atrium is mildly dilated. A small ASD was detected with a small Lt to Rt shunt was identified AORTIC VALVE The aortic valve is normal in structure and function. No aortic regurgitation is present. There is no aortic valvular stenosis. MITRAL VALVE Mitral annular calcification is moderate. There is no evidence of mitral valve prolapse. There is no mitral valve stenosis. Mitral regurgitation is severe. TRICUSPID VALVE The tricuspid valve is normal in structure. There is moderate to severe tricuspid regurgitation. Right ventricular systolic pressure is estimated at 40 mmHg. There is moderate pulmonary hypertension. PULMONIC VALVE The pulmonary valve is normal in structure and function. There is no pulmonic valvular regurgitation. GREAT VESSELS The aortic root is normal in size. The IVC is dilated. The IVC collapses <50% with inspiration. PERICARDIAL EFFUSION The pericardium appears normal. <Conclusion> The left ventricle is normal size. There is mild concentric left ventricular hypertrophy. There is normal LV segmental wall motion. Left ventricle systolic function is normal. The Ejection Fraction is 60-65%. Transmitral Doppler flow pattern is Grade I-abnormal relaxation pattern. The left atrium is moderately dilated. The right atrium is mildly dilated. Mitral regurgitation is severe. There is moderate to severe tricuspid regurgitation. There is moderate pulmonary hypertension. The IVC is dilated. The IVC collapses <50% with inspiration. A small ASD was detected with a small Lt to Rt shunt was identified
[2017-02-08] MEDS: Multivitamin Vitamin B Complex (Nephro-Vite) Tab PO SCH (09:00)
--- NOTE | 2017-02-08 14:15 | CP.PCM.CON ---
History of Present Illness - History of Present Illness History of Present Illness: Patient transferred for cardiac catheterization This patient who is 66 years of phage female with very long history on hemodialysis for about 20 years plus. She was brought to the emergency room with shortness of breath acute dyspnea. And the history from the medical artist as follow(66 Y/O female with PMHx of HTN, ESRD on HD (M/W/F), seizure disorder and CVA Who was brought in by EMS with Acute onset dyspnea at home, found to have severely elevated SBP (200+) also Labs showed Hyperkalemia of 6.3 and elevated Trop 0.295-->1.080-->1.060 Underwent emergent HD. Antihypertensive resumed Awake, comfortable, NAD No CP/SOB This morning labs H/H stable, k 4.8, Bun/Cr 50/5.8 Transferred to [facility] [place], Scheduled for Cardiac Cath Patient has significant past surgical history related to left nephrectomy with a past surgery also on the right kidney Patient has history of noncompliance with the potassium and her potassium old was elevated at the dialysis unit and she declare clearly that she would not follow up renal diet Review of Systems - Review of Systems Systems not reviewed;Unavailable: Respiratory Distress - Constitutional Constitutional: absent: Chills - EENT Nose/Mouth/Throat: As Per HPI - Cardiovascular Cardiovascular: Chest Pain, Dyspnea. absent: Leg Edema, Leg Ulcers - Respiratory Respiratory: Cough, Dyspnea - Musculoskeletal Musculoskeletal: Muscle Cramps - Neurological Neurological: Weakness Past Patient History - Past Medical History & Family History Past Medical History?: Yes - Past Social History Smoking Status: Former Smoker - CARDIAC Hx Cardiac Disorders: Yes Hx Hypertension: Yes - PULMONARY Hx Respiratory Disorders: No - NEUROLOGICAL Hx Neurological Disorder: Yes - HEENT Hx HEENT Problems: Yes - RENAL Hx Chronic Kidney Disease: Yes - ENDOCRINE/METABOLIC Hx Endocrine Disorders: No - HEMATOLOGICAL/ONCOLOGICAL Hx Blood Disorders: Yes - INTEGUMENTARY Hx Dermatological Problems: No - MUSCULOSKELETAL/RHEUMATOLOGICAL Hx Musculoskeletal Disorders: Yes - GASTROINTESTINAL Hx Gastroesophageal Reflux: No Hx Ileostomy: Yes Other/Comment: GI tumor/ Incontinent of stool. - GENITOURINARY/GYNECOLOGICAL Hx Genitourinary Disorders: Yes - PSYCHIATRIC Hx Psychophysiologic Disorder: Yes - SURGICAL HISTORY Hx Section: Yes (3) Other/Comment: GI tumor removal, parathyroid sx. - ANESTHESIA Hx Anesthesia: Yes Hx Anesthesia Reactions: No Hx Malignant Hyperthermia: No Has any member of the family had a problem w/ anesthesia?: No Meds Allergies/Adverse Reactions: Allergies Allergy/AdvReac Type Severity Reaction Status Date / Time No Known Allergies Allergy Verified 02/06/17 21:02 - Medications Medications: Current Medications Acetaminophen (Tylenol 325mg Tab) 650 mg PO Q6 PRN PRN Reason: Headache Last Admin: 02/06/17 23:08 Dose: 650 mg Amlodipine Besylate (Norvasc) 10 mg PO DAILY [facility] Last Admin: 02/07/17 09:41 Dose: 10 mg Atorvastatin Calcium (Lipitor) 80 mg PO DAILY [facility] Last Admin: 02/07/17 18:32 Dose: Not Given Clonidine HCl (Catapres) 0.1 mg PO Q8 [facility] Last Admin: 02/08/17 08:26 Dose: 0.1 mg Clopidogrel Bisulfate (Plavix) 75 mg PO DAILY [facility] Last Admin: 02/07/17 16:47 Dose: 75 mg Heparin Sodium/Dextrose (Heparin 25,000 Units/250ml In D5w) 25,000 units in 250 mls @ 7 mls/hr IV .Q24H [facility] PRN Reason: Protocol Last Titration: 02/08/17 06:23 Dose: 9 mls/hr Levetiracetam (Keppra) 250 mg PO BID [facility] Last Admin: 02/07/17 18:31 Dose: Not Given Metoprolol Tartrate (Lopressor) 25 mg PO Q12 [facility] Last Admin: 02/08/17 08:27 Dose: 25 mg Vitamin B Complex/Vit C/Folic Acid (Nephro-Alyse) 1 tab PO DAILY [facility] Last Admin: 02/07/17 09:40 Dose: 1 tab Physical Exam - Constitutional Appears: In Acute Distress - Eye Exam Eye Exam: Conjunctival injection - ENT Exam ENT Exam: Mucous Membranes Moist - Respiratory Exam Respiratory Exam: Rhonchi. absent: Chest Wall Tenderness - Cardiovascular Exam Cardiovascular Exam: REGULAR RHYTHM, JVD. absent: Rubs - Extremities Exam Extremities exam: Negative for: calf tenderness - Back Exam Back exam: absent: CVA tenderness (L), CVA tenderness (R) - Neurological Exam Neurological exam: Alert Results - Vital Signs Recent Vital Signs: Last Vital Signs Temp 98.6 F 02/08/17 08:00 Pulse 77 02/08/17 08:27 Resp 22 02/08/17 08:00 BP 181/87 H 02/08/17 08:27 Pulse Ox 98 02/08/17 08:00 - Labs Result Diagrams: 02/08/17 04:40 02/08/17 04:40 Labs: Laboratory Results - last 24 hr 02/07/17 02/07/17 02/07/17 18:50 19:30 21:10 WBC 10.9 H RBC 3.05 L Hgb 9.5 L Hct 29.9 L MCV 97.9 MCH 31.3 H MCHC 32.0 L RDW 17.3 H Plt Count 249 PT INR APTT Sodium 135 Potassium 5.0 Chloride 93 L Carbon Dioxide 29 Anion Gap 18 BUN 42 H Creatinine 4.7 H Est GFR ( Amer) 11 Est GFR (Non-Af Amer) 9 Random Glucose 160 H Calcium 9.4 Total Bilirubin AST ALT Alkaline Phosphatase Troponin I 1.0800 H* Total Protein Albumin Globulin Albumin/Globulin Ratio Triglycerides Cholesterol LDL Cholesterol Direct HDL Cholesterol Vitamin B12 02/07/17 02/08/17 02/08/17 21:10 04:40 04:40 WBC 9.7 RBC 3.22 L Hgb 10.1 L Hct 31.8 L MCV 98.8 MCH 31.4 H MCHC 31.7 L RDW 17.4 H Plt Count 228 PT 12.4 INR 1.2 APTT 28.4 D Sodium 136 Potassium 4.8 Chloride 95 L Carbon Dioxide 28 Anion Gap 18 BUN 50 H Creatinine 5.8 H Est GFR ( Amer) 9 Est GFR (Non-Af Amer) 7 Random Glucose 99 Calcium 9.3 Total Bilirubin 0.5 AST 72 H ALT 58 H Alkaline Phosphatase 124 Troponin I Total Protein 6.9 Albumin 3.5 Globulin 3.3 Albumin/Globulin Ratio 1.1 Triglycerides 65 D Cholesterol 160 LDL Cholesterol Direct 81 HDL Cholesterol 46 Vitamin B12 366 02/08/17 02/08/17 04:40 05:00 WBC RBC Hgb Hct MCV MCH MCHC RDW Plt Count PT 11.7 INR 1.1 APTT 31.0 Sodium Potassium Chloride Carbon Dioxide Anion Gap BUN Creatinine Est GFR ( Amer) Est GFR (Non-Af Amer) Random Glucose Calcium Total Bilirubin AST ALT Alkaline Phosphatase Troponin I 1.0600 H* Total Protein Albumin Globulin Albumin/Globulin Ratio Triglycerides Cholesterol LDL Cholesterol Direct HDL Cholesterol Vitamin B12 Assessment & Plan (1) CHF (congestive heart failure) Status: Acute (2) ESRD (end stage renal disease) on dialysis Assessment and Plan: Patient with end stage renal disease on maintenance hemodialysis was admitted to his flash pulmonary edema Required emergency dialysis Patient is doing better today And as noted by the cardiology for cardiac catheterization Review of the medications Status: Acute (3) Hyperkalemia Status: Acute (4) Troponin level elevated Status: Acute (5) Flash pulmonary edema Status: Acute
--- NOTE | 2017-02-08 17:35 | CP.CCUPN ---
CCU Subjective - Physician Review Events Since Last Encounter (Free Text): 02/08/17 The patient was Seen/interviewed and examined by me at the bedside during ICU round, Medical records reviewed and Management issues were discussed and formulated with the house staff. 66 Y/O female with PMHx of HTN, ESRD on HD (M/W/F), seizure disorder and CVA Who was brought in by EMS with Acute onset dyspnea at home, found to have severely elevated SBP (200+) also Labs showed Hyperkalemia of 6.3 and elevated Trop 0.295-->1.080-->1.060 Underwent emergent HD. Antihypertensive resumed Awake, comfortable, NAD No CP/SOB This morning labs H/H stable, k 4.8, Bun/Cr 50/5.8 Transferred to [facility] [place], Scheduled for Cardiac Cath CCU Objective - Vital Signs / Intake & Output Intake and Output (Last 8hrs): Intake & Output 02/08/17 02/08/17 02/08/17 06:59 14:59 22:59 Intake Total 102 18 Balance 102 18 Intake: IV 52 Intake, Piggyback 18 Oral 50 Other: # Bowel Movements 1 1 - Physical Exam Head: Positive for: Normocephalic Pupils: Positive for: PERRL Extroacular Muscles: Positive for: EOMI Conjunctiva: Positive for: Normal. Negative for: Icteric Mouth: Positive for: Moist Mucous Membranes Neck: Negative for: JVD Respiratory/Chest: Positive for: Decreased Breath Sounds, Rales. Negative for: Accessory Muscle Use Cardiovascular: Positive for: Regular Rate and Rhythm. Negative for: Rub Abdomen: Positive for: Normal Bowel Sounds. Negative for: Tenderness, Distention Lower Extremity: Positive for: Edema, NORMAL PULSES. Negative for: CALF TENDERNESS, Cyanosis Neurological: Positive for: GCS=15, Motor Func Grossly Intact, Normal Sensory Function Skin: Positive for: Warm. Negative for: Rashes - Medications Active Medications: Active Medications Generic Name Dose Route Start Last Admin Trade Name Freq PRN Reason Stop Dose Admin Acetaminophen 650 mg 02/06/17 22:56 02/06/17 23:08 Tylenol 325mg Tab PO 650 mg Q6 PRN Administration Headache Amlodipine Besylate 10 mg 02/07/17 09:00 02/07/17 09:41 Norvasc PO 10 mg DAILY [facility] Administration Atorvastatin Calcium 80 mg 02/07/17 15:30 02/07/17 18:32 Lipitor PO Not Given DAILY [facility] Clonidine HCl 0.1 mg 02/07/17 09:00 02/08/17 08:26 Catapres PO 0.1 mg Q8 [facility] Administration Clopidogrel Bisulfate 75 mg 02/07/17 15:30 02/07/17 16:47 Plavix PO 75 mg DAILY [facility] Administration Heparin Sodium/Dextrose 25,000 units in 250 mls @ 7 mls/hr 02/07/17 20:15 05/15 06:23 Heparin 25,000 Units/250ml In D5w IV 9 mls/hr .Q24H [facility] Titration Protocol Levetiracetam 250 mg 02/07/17 09:00 02/07/17 18:31 Keppra PO Not Given BID [facility] Metoprolol Tartrate 25 mg 02/07/17 21:00 02/08/17 08:27 Lopressor PO 25 mg Q12 [facility] Administration Vitamin B Complex/Vit C/Folic Acid 1 tab 02/07/17 09:00 02/07/17 09:40 Nephro-Alyse PO 1 tab DAILY [facility] Administration - Patient Studies Lab Studies: Microbiology Studies 02/07/17 03:36 Blood Culture - Preliminary Blood-During Dialysis NO GROWTH AFTER 24 HOURS Lab Studies 02/08/17 02/08/17 02/08/17 Range/Units 05:00 04:40 04:40 WBC (4.8-10.8) K/uL RBC (3.80-5.20) Mil/uL Hgb (12.0-16.0) g/dL Hct (34.0-47.0) % MCV (81.0-99.0) fl MCH (27.0-31.0) pg MCHC (33.0-37.0) g/dL RDW (11.5-14.5) % Plt Count (130-400) K/uL PT 11.7 (9.8-13.1) Seconds INR 1.1 (0.9-1.2) APTT 31.0 (25.6-37.1) Seconds Sodium 136 (132-148) mmol/l Potassium 4.8 (3.6-5.0) MMOL/L Chloride 95 L (98-107) mmol/L Carbon Dioxide 28 (22-30) mmol/L Anion Gap 18 (10-20) BUN 50 H (7-17) mg/dl Creatinine 5.8 H (0.7-1.2) mg/dL Est GFR ( Amer) 9 Est GFR (Non-Af Amer) 7 Random Glucose 99 (65-105) mg/dL Calcium 9.3 (8.4-10.2) mg/dL Total Bilirubin 0.5 (0.2-1.3) mg/dl AST 72 H (14-36) U/L ALT 58 H (9-52) U/L Alkaline Phosphatase 124 (38-126) U/L Troponin I 1.0600 H* (0.00-0.120) ng/mL Total Protein 6.9 (6.3-8.2) G/DL Albumin 3.5 (3.5-5.0) g/dL Globulin 3.3 (2.2-3.9) gm/dL Albumin/Globulin Ratio 1.1 (1.0-2.1) Triglycerides 65 D (0-149) mg/DL Cholesterol 160 (0-199) mg/dL LDL Cholesterol Direct 81 (0-129) mg/dL HDL Cholesterol 46 (30-70) MG/DL Vitamin B12 366 (239-931) pg/mL 02/08/17 02/07/17 02/07/17 Range/Units 04:40 21:10 21:10 WBC 9.7 10.9 H (4.8-10.8) K/uL RBC 3.22 L 3.05 L (3.80-5.20) Mil/uL Hgb 10.1 L 9.5 L (12.0-16.0) g/dL Hct 31.8 L 29.9 L (34.0-47.0) % MCV 98.8 97.9 (81.0-99.0) fl MCH 31.4 H 31.3 H (27.0-31.0) pg MCHC 31.7 L 32.0 L (33.0-37.0) g/dL RDW 17.4 H 17.3 H (11.5-14.5) % Plt Count 228 249 (130-400) K/uL PT 12.4 (9.8-13.1) Seconds INR 1.2 (0.9-1.2) APTT 28.4 D (25.6-37.1) Seconds Sodium (132-148) mmol/l Potassium (3.6-5.0) MMOL/L Chloride (98-107) mmol/L Carbon Dioxide (22-30) mmol/L Anion Gap (10-20) BUN (7-17) mg/dl Creatinine (0.7-1.2) mg/dL Est GFR ( Amer) Est GFR (Non-Af Amer) Random Glucose (65-105) mg/dL Calcium (8.4-10.2) mg/dL Total Bilirubin (0.2-1.3) mg/dl AST (14-36) U/L ALT (9-52) U/L Alkaline Phosphatase (38-126) U/L Troponin I (0.00-0.120) ng/mL Total Protein (6.3-8.2) G/DL Albumin (3.5-5.0) g/dL Globulin (2.2-3.9) gm/dL Albumin/Globulin Ratio (1.0-2.1) Triglycerides (0-149) mg/DL Cholesterol (0-199) mg/dL LDL Cholesterol Direct (0-129) mg/dL HDL Cholesterol (30-70) MG/DL Vitamin B12 (239-931) pg/mL 02/07/17 02/07/17 Range/Units 19:30 18:50 WBC (4.8-10.8) K/uL RBC (3.80-5.20) Mil/uL Hgb (12.0-16.0) g/dL Hct (34.0-47.0) % MCV (81.0-99.0) fl MCH (27.0-31.0) pg MCHC (33.0-37.0) g/dL RDW (11.5-14.5) % Plt Count (130-400) K/uL PT (9.8-13.1) Seconds INR (0.9-1.2) APTT (25.6-37.1) Seconds Sodium 135 (132-148) mmol/l Potassium 5.0 (3.6-5.0) MMOL/L Chloride 93 L (98-107) mmol/L Carbon Dioxide 29 (22-30) mmol/L Anion Gap 18 (10-20) BUN 42 H (7-17) mg/dl Creatinine 4.7 H (0.7-1.2) mg/dL Est GFR ( Amer) 11 Est GFR (Non-Af Amer) 9 Random Glucose 160 H (65-105) mg/dL Calcium 9.4 (8.4-10.2) mg/dL Total Bilirubin (0.2-1.3) mg/dl AST (14-36) U/L ALT (9-52) U/L Alkaline Phosphatase (38-126) U/L Troponin I 1.0800 H* (0.00-0.120) ng/mL Total Protein (6.3-8.2) G/DL Albumin (3.5-5.0) g/dL Globulin (2.2-3.9) gm/dL Albumin/Globulin Ratio (1.0-2.1) Triglycerides (0-149) mg/DL Cholesterol (0-199) mg/dL LDL Cholesterol Direct (0-129) mg/dL HDL Cholesterol (30-70) MG/DL Vitamin B12 (239-931) pg/mL Laboratory Results - last 24 hr 02/07/17 02/07/17 02/07/17 18:50 19:30 21:10 WBC 10.9 H RBC 3.05 L Hgb 9.5 L Hct 29.9 L MCV 97.9 MCH 31.3 H MCHC 32.0 L RDW 17.3 H Plt Count 249 PT INR APTT Sodium 135 Potassium 5.0 Chloride 93 L Carbon Dioxide 29 Anion Gap 18 BUN 42 H Creatinine 4.7 H Est GFR ( Amer) 11 Est GFR (Non-Af Amer) 9 Random Glucose 160 H Calcium 9.4 Total Bilirubin AST ALT Alkaline Phosphatase Troponin I 1.0800 H* Total Protein Albumin Globulin Albumin/Globulin Ratio Triglycerides Cholesterol LDL Cholesterol Direct HDL Cholesterol Vitamin B12 02/07/17 02/08/17 02/08/17 21:10 04:40 04:40 WBC 9.7 RBC 3.22 L Hgb 10.1 L Hct 31.8 L MCV 98.8 MCH 31.4 H MCHC 31.7 L RDW 17.4 H Plt Count 228 PT 12.4 INR 1.2 APTT 28.4 D Sodium 136 Potassium 4.8 Chloride 95 L Carbon Dioxide 28 Anion Gap 18 BUN 50 H Creatinine 5.8 H Est GFR ( Amer) 9 Est GFR (Non-Af Amer) 7 Random Glucose 99 Calcium 9.3 Total Bilirubin 0.5 AST 72 H ALT 58 H Alkaline Phosphatase 124 Troponin I Total Protein 6.9 Albumin 3.5 Globulin 3.3 Albumin/Globulin Ratio 1.1 Triglycerides 65 D Cholesterol 160 LDL Cholesterol Direct 81 HDL Cholesterol 46 Vitamin B12 366 02/08/17 02/08/17 04:40 05:00 WBC RBC Hgb Hct MCV MCH MCHC RDW Plt Count PT 11.7 INR 1.1 APTT 31.0 Sodium Potassium Chloride Carbon Dioxide Anion Gap BUN Creatinine Est GFR ( Amer) Est GFR (Non-Af Amer) Random Glucose Calcium Total Bilirubin AST ALT Alkaline Phosphatase Troponin I 1.0600 H* Total Protein Albumin Globulin Albumin/Globulin Ratio Triglycerides Cholesterol LDL Cholesterol Direct HDL Cholesterol Vitamin B12 Review of Systems - Cardiovascular Cardiovascular: absent: As Per HPI, Acrocyanosis, Chest Pain, Chest Pain at Rest , Chest Pain with Activity, Claudication, Diaphoresis, Dyspnea, Dyspnea on Exertion, Edema, Irregular Heart Rhythm, Pain Radiating to Arm/Neck/Jaw, Leg Edema, Leg Ulcers, Lightheadedness, Orthopnea, Palpitations, Paroxysmal Nocturnal Dyspnea, Pedal Edema, Radiating Pain, Rapid Heart Rate, Slow Heart Rate, Syncope, Other, UNREMARKABLE - Respiratory Respiratory: absent: As Per HPI, Cough, Dyspnea, Hemoptysis, Dyspnea on Exertion , Wheezing, Snoring, Stridor, Pain on Inspiration, Chest Congestion, Excessive Mucous Production, Change in Mucous Color, Pain with Coughing, Other, UNREMARKABLE Critical Care Progress Note - Nutrition Nutrition: Nutrition Category Date Time Status Renal Diet [DIET] Diets 02/06/17 Breakfast Active Assessment/Plan (1) CHF (congestive heart failure) Current Visit: Yes Status: Acute (2) ESRD (end stage renal disease) on dialysis Current Visit: Yes Status: Acute (3) Hyperkalemia Current Visit: Yes Status: Acute (4) Troponin level elevated Current Visit: Yes Status: Acute (5) Flash pulmonary edema Current Visit: No Status: Acute (6) Hypertensive urgency Current Visit: No Status: Acute (7) Seizure Current Visit: No Status: Acute
[2017-02-08 22:00] LABS: FOLATE > 20.0 ng/mL
[2017-02-08] MEDS: Heparin 25,000units in D5W 25,000 UNITS/250 ML BAG IV SCH (23:01)
[2017-02-09] MEDS: Multivitamin Vitamin B Complex (Nephro-Vite) Tab PO SCH (08:21)
--- NOTE | 2017-02-09 12:19 | PN ---
DATE: 02/09/2017 SUBJECTIVE: The patient is seen and examined. Interim events noted. Consults noted and appreciated. Nephrology, Lightning Protection Installer, Cardiology followup and intervention noted and appreciated. The patient had cardiac cath done yesterday. The case was discussed with Quality Lab Technician. No intervention needed at this time. The patient remains in intensive care unit. The patient feels okay. Feels much better. No chest pain. No shortness of breath. PHYSICAL EXAMINATION GENERAL: The patient is in no acute distress. VITAL SIGNS: Stable. Temperature 98.9, pulse 67, respirations 16, blood pressure 165/70. Saturation 92%. HEART: S1, S2 normal regular. LUNGS: Clear, bilateral air exchange. ABDOMEN: Soft, nontender. EXTREMITIES: No edema, no calf swelling, no tenderness. No acute ischemia. CENTRAL NERVOUS SYSTEM: Essentially unchanged. DIAGNOSTIC DATA: Available diagnostic data revealed WBC 9.7, hemoglobin 10.1, hematocrit 31.8, platelets 230. Sodium 136, potassium 4.3, chloride 97, bicarbonate 20, BUN 50, creatinine 5.8. The patient is for dialysis today. SMA-12 is unremarkable. Vitamin B12 level is 366. Folic acid is pending. Nephrology followup and intervention noted and appreciated. Overall, the telemetry monitoring does not show significant arrhythmias. Overall, the patient is medically stable. The patient is for dialysis today. If consultants agree, we will discharge the patient after dialysis. PLAN: As ordered. Case and plan was discussed with the patient. Prateek Davis MD
[2017-02-09 12:29] VITALS: TEMP 98.2
[2017-02-09 14:30] VITALS: PULSE 71; RESP 22; O2SAT 97
--- NOTE | 2017-02-09 15:02 | CP.PCM.PN ---
Subjective - Date & Time of Evaluation Date of Evaluation: 02/09/17 Time of Evaluation: 15:00 - Subjective Subjective: Patient was seen on hemodialysis now Ultrafiltration approximately 2500 mL Patient refused to stay more than 3 hours on hemodialysis Reviewed blood work Objective - Vital Signs/Intake and Output Vital Signs (last 24 hours): Temp Pulse Resp BP Pulse Ox 98.2 F 71 22 182/79 H 97 02/09/17 12:00 02/09/17 14:00 02/09/17 14:00 02/09/17 14:00 02/09/17 14:00 Intake and Output: 02/09/17 02/09/17 06:59 18:59 Intake Total 275 410 Balance 275 410 - Medications Medications: Current Medications Acetaminophen (Tylenol 325mg Tab) 650 mg PO Q6 PRN PRN Reason: Headache Last Admin: 02/06/17 23:08 Dose: 650 mg Amlodipine Besylate (Norvasc) 10 mg PO DAILY [facility] Last Admin: 02/09/17 12:41 Dose: 10 mg Atorvastatin Calcium (Lipitor) 80 mg PO DAILY [facility] Last Admin: 02/09/17 08:19 Dose: Not Given Clonidine HCl (Catapres) 0.1 mg PO Q8 [facility] Last Admin: 02/09/17 08:21 Dose: 0.1 mg Clopidogrel Bisulfate (Plavix) 75 mg PO DAILY [facility] Last Admin: 02/09/17 08:20 Dose: Not Given Levetiracetam (Keppra) 250 mg PO BID [facility] Last Admin: 02/09/17 08:21 Dose: 250 mg Metoprolol Tartrate (Lopressor) 25 mg PO Q12 [facility] Last Admin: 02/09/17 08:21 Dose: 25 mg Vitamin B Complex/Vit C/Folic Acid (Nephro-Alyse) 1 tab PO DAILY [facility] Last Admin: 02/09/17 08:21 Dose: 1 tab - Labs Labs: 02/08/17 04:40 02/08/17 04:40 PT 11.7 Seconds (9.8-13.1) 02/08/17 04:40 INR 1.1 (0.9-1.2) 02/08/17 04:40 APTT 31.0 Seconds (25.6-37.1) 02/08/17 04:40 - Constitutional Appears: No Acute Distress - ENT Exam ENT Exam: Mucous Membranes Moist - Respiratory Exam Respiratory Exam: NORMAL BREATHING PATTERN. absent: Chest Wall Tenderness - Cardiovascular Exam Cardiovascular Exam: absent: JVD, Rubs - GI/Abdominal Exam GI & Abdominal Exam: Normal Bowel Sounds - Extremities Exam Extremities Exam: absent: Calf Tenderness - Back Exam Back Exam: absent: CVA tenderness (L), CVA tenderness (R) - Neurological Exam Neurological Exam: Alert Assessment and Plan (1) CHF (congestive heart failure) Status: Acute (2) ESRD (end stage renal disease) on dialysis Assessment & Plan: End stage renal disease patient tolerating hemodialysis well right now Potassium bath 2 mEq Sodium bath 138 As noted by the cardiology status post cardiac catheterization no stenting needed Status: Acute (3) Hyperkalemia Status: Acute (4) Troponin level elevated Status: Acute (5) Flash pulmonary edema Status: Acute
[2017-02-09 16:10] VITALS: BP 190/75
== END 2017-02-09 18:00 | disposition home or self-care (01) | DRG 544 ==
LOC: H.ER 20:55 → H.ERHOLD 22:28 → H.ICU/CCU 23:29
PROVIDERS: ADMIT Internal Medicine; ATTEND Internal Medicine
PROC: 5A1D60Z (ICD-10-PCS; principal; 2017-02-07)
DX: I13.2 Hypertensive heart and chronic kidney disease with heart failure and with stage 5 chronic kidney disease, or end stage renal disease (principal); I50.31 Acute diastolic (congestive) heart failure; N18.6 End stage renal disease; E87.5 Hyperkalemia; I16.0 Hypertensive urgency; Z99.2 Dependence on renal dialysis; G40.909 Epilepsy, unspecified, not intractable, without status epilepticus; Z86.73 Personal history of transient ischemic attack (TIA), and cerebral infarction without residual deficits; I25.10 Atherosclerotic heart disease of native coronary artery without angina pectoris; Z95.5 Presence of coronary angioplasty implant and graft; D63.8 Anemia in other chronic diseases classified elsewhere; Z91.14 Patient's other noncompliance with medication regimen

== ENCOUNTER 2017-04-28 16:44 | Observation (INO) | payer MEDICARE, MEDICAID ==
[2017-04-28 16:44] VITALS: BMI 22.6
[2017-04-28] MEDS ORDERED: Sodium Chloride 0.9% 1,000 ML IV STA (17:22)
--- NOTE | 2017-04-28 17:25 | ED PDOC ---
HPI: Abdomen Time Seen by Provider: 04/28/17 17:16 Chief Complaint (Nursing): Abdominal Pain History Per: Patient Onset/Duration Of Symptoms: Days (1) Current Symptoms Are (Timing): Still Present Severity: Moderate Pain Scale Rating Of: 3 Location Of Pain/Discomfort: Diffuse Quality Of Discomfort: Unable To Describe Associated Symptoms: Nausea, Vomiting, Diarrhea Exacerbating Factors: Other (Post colonoscopy) Alleviating Factors: None Last Bowel Movement: Today Additional Complaint(s): Nausea vomiting and diarrhea assoc with vaginal bleeding. Occurred after having colonoscopy today. No blood in stool. nO fever. Abnormal Vaginal Bleeding: Yes Past Medical History Vital Signs: Last Vital Signs Temp 98 F 04/28/17 16:45 Pulse 88 04/28/17 16:45 Resp 20 04/28/17 16:45 BP Pulse Ox 96 04/28/17 18:14 - Medical History PMH: Anxiety, CVA, HTN, End Stage Renal Disease (Last dialysis yesterday), Chronic Kidney Disease Denies: Arthritis, CHF, COPD, Hypercholesterolemia, Hypothyroidism, Pneumonia , Rheumatoid Arthritis Other PMH: GIST - Family History Family History: States: Unknown Family Hx - Home Medications Home Medications: Ambulatory Orders Medication Instructions Recorded Lisinopril [Zestril] 20 mg PO DAILY #30 tab 10/15/16 Vitamin B Complex/Vit C/Folic 1 tab PO DAILY #90 tab 10/15/16 [Nephro-Alyse] amLODIPine [Norvasc] 10 mg PO DAILY #30 tab 10/15/16 cloNIDine [Catapres] 0.1 mg PO Q8 #90 10/15/16 levETIRAcetam [Keppra] 250 mg PO BID #60 tab 10/15/16 - Allergies Allergies/Adverse Reactions: Allergies Allergy/AdvReac Type Severity Reaction Status Date / Time No Known Allergies Allergy Verified 02/06/17 21:02 Review of Systems ROS Statement: Except As Marked, All Systems Reviewed And Found Negative Gastrointestinal: Positive for: Nausea, Vomiting, Abdominal Pain, Diarrhea Genitourinary Female: Positive for: Vaginal Bleeding Physical Exam - Reviewed Nursing Documentation Reviewed: Yes Vital Signs Reviewed: Yes - Physical Exam Appears: Positive for: Non-toxic, Uncomfortable Head Exam: Positive for: ATRAUMATIC, NORMAL INSPECTION, NORMOCEPHALIC Skin: Positive for: Normal Color, Warm, DRY Eye Exam: Positive for: EOMI, Normal appearance, PERRL ENT: Positive for: Normal ENT Inspection Neck: Positive for: Normal, Painless ROM Cardiovascular/Chest: Positive for: Regular Rate, Rhythm Respiratory: Positive for: CNT, Normal Breath Sounds Gastrointestinal/Abdominal: Positive for: Bowel Sounds, Soft, Tenderness ( diffuse) Pelvic Exam: Positive for: External Exam Normal, Blood (blood in vault). Negative for: Tender Adnexa Back: Positive for: Normal Inspection Extremity: Positive for: Normal ROM Neurologic/Psych: Positive for: Alert, Oriented - Laboratory Results Result Diagrams: 04/28/17 17:32 04/28/17 17:32 - ECG O2 Sat by Pulse Oximetry: 96 Disposition - Clinical Impression Clinical Impression: Abdominal pain - Patient ED Disposition Is Patient to be Admitted: Transfer of Care - Disposition Disposition: Transfer of Care Disposition Time: 19:00 Condition: FAIR Forms: [facility] ([place]) Patient Signed Over To: Dhruv Carmona
[2017-04-28 17:37] LABS: BASO % 0.4 % (0.0-2.0); EOS % 0.7 % (0.0-4.0); LYMPH # 0.3 K/uL (1.0-4.3); LYMPH % 8.1 % (20.0-40.0); MEAN CELL VOLUME 92.1 fl (81.0-99.0); MEAN CORPUSCULAR HEMOGLOBIN 28.9 pg (27.0-31.0); MEAN CORPUSCULAR HGB CONC 31.4 g/dL (33.0-37.0); MEAN PLATELET VOLUME 9.1 fl (7.2-11.7); NEUT # 2.8 K/uL (1.8-7.0); NEUT % 89.8 % (50.0-75.0); NRBC % 0.1 % (0.0-0.0); PLATELET COUNT 179 K/uL (130-400); RED CELL DISTRIBUTION WIDTH 19.9 % (11.5-14.5); WHITE BLOOD COUNT 3.2 K/uL (4.8-10.8)
[2017-04-28 18:17] LABS: ALB/GLOB RATIO 1.2 (1.0-2.1); BILIRUBIN,TOTAL 0.9 mg/dl (0.2-1.3); CALCIUM 9.4 mg/dL (8.4-10.2); POTASSIUM 4.1 MMOL/L (3.6-5.0); TOTAL PROTEIN 7.5 G/DL (6.3-8.2)
[2017-04-28 18:58] LABS: EOSINOPHIL 1 % (0-7); LARGE PLATELETS PRESENT; NEUTROPHIL 86 % (42-75); TOTAL CELLS COUNTED 100
--- NOTE | 2017-04-28 19:09 | ED PDOC ---
- Laboratory Results Result Diagrams: 04/28/17 17:32 04/28/17 17:32 - ECG O2 Sat by Pulse Oximetry: 96 (RA) Pulse Ox Interpretation: Normal Medical Decision Making Medical Decision Makin:00 Patient is signed over to me from Dr. Shelley. CT scan pending. 19:24 Abdominal/pelvic CT scan reviewed. Findings noted as follows: FINDINGS: Lower thorax: The heart is enlarged. There are coronary artery calcifications. There is a hiatal hernia. Lung bases are hyperinflated. There is atelectasis and scarring at the lung bases. There are trace effusions. ABDOMEN: Liver: unremarkable Gallbladder and bile ducts: Gallbladder is partially distended with small dependent stones. There is prominence of the common duct. Pancreas: Pancreas is mildly atrophic. Spleen: unremarkable Adrenals: Adrenals are difficult to identify. Kidneys and ureters: Right kidney is not visualized. Left kidney is mildly atrophic. There are left renal cysts. There is no pelvocaliectasis or ureterectasis. Stomach and bowel: There is thickening of the gastric wall. There is an air-fluid level in the stomach. Rotation is normal. There is duodenal and jejunal wall thickening. Small bowel wall thickening decreases distally. There is been partial right hemicolectomy. There is an ileocolic anastomosis in the right flank.Colon is incompletely distended which limits evaluation. There is minimal diverticulosis Appendix: See stomach and bowel PELVIS: Bladder: Bladder is almost completely empty. Reproductive: Uterus is atrophic. Adnexa are unremarkable. There is dense fluid and air in the region of the vagina. ABDOMEN and PELVIS: Intraperitoneal space: There is no free air. There is fluid in the abdomen and pelvis. Bones/joints: Bony structures are osteopenic. There are degenerative changes. There is partial ankylosis of the sacroiliac joints. There are compression deformities at multiple levels greatest at T9. Soft tissues: There is body wall edema. Vasculature: There is extensive vascular calcification large and small vessels. Lymph nodes: unremarkable IMPRESSION: Cardiomegaly and extensive atherosclerotic disease; absent right kidney and left renal atrophy; gallstones; ascites; gastric and proximal small bowel wall thickening; partial right hemicolectomy ileocolic anastomosis in the right flank; limited evaluation of the uterus and adnexa, probable fluid and air in the vaginal vault; osteopenia and compression fractures Additional findings as described above. 20:00 Patient reports persistent sense of generalized weakness and expresses concern for vaginal bleeding as it has been an issue ongoing intermittently for a year. Ultrasound is ordered to further evaluate vaginal bleeding. Patient will be admitted under hospital observation due to persistent weakness and end stage renal disease (on hemodialysis) and vaginal bleeding. Case was referred to Kirt Garcia NP. 22:24 Pelvic ultrasound reviewed. Findings noted as follows: FINDINGS: Uterus: Uterus is anteflexed. Uterus measures approximately 7.8 x 4 x 2.1 cm. Endometrium could not be identified. There is a fluid collection in the uterus, 2.6 x 3 x 0.6 cm. Right ovary: Right ovary measures approximately 2.7 x 1.9 x 1.9 cm.There is expected blood flow on Doppler imaging Left ovary: Left ovary measures approximately 1.8 x 1.2 x 1.2 cm.There is expected blood flow on Doppler imaging Free fluid: There is no free fluid. Bladder: Bladder is empty which limits evaluation of the pelvis. IMPRESSION: Limited evaluation of the pelvis due to empty bladder; fluid collection in the uterus Scribe Attestation: Documented by Tressa Almanza, acting as a scribe for Dhruv Carmona MD. Provider Scribe Attestation: All medical record entries made by the Scribe were at my direction and personally dictated by me. I have reviewed the chart and agree that the record accurately reflects my personal performance of the history, physical exam, medical decision making, and the department course for this patient. I have also personally directed, reviewed, and agree with the discharge instructions and disposition. Disposition Comment: Perry Garcia NP [facility] aware Doctor Will See Patient In The: Hospital Counseled Patient/Family Regarding: Studies Performed, Diagnosis - Clinical Impression Clinical Impression: Abdominal pain - POA Present On Arrival: None - Disposition Disposition: Hospitalized as Observation Patient Disposition Time: 20:00 Condition: FAIR
--- NOTE | 2017-04-28 19:25 | CT ---
EXAM: CT Abdomen and Pelvis Without Intravenous Contrast EXAM DATE/TIME: 04/28/2017 5:48 PM CLINICAL HISTORY: 67 years old, female; Pain and signs and symptoms; Vomiting and other: Vaginal bleeding; Abdominal pain; Generalized; Prior surgery; Surgery date: 6+ months; Surgery type: 3 c-sections; Additional info: Abd pain vag bleeding post colonoscopy. Sent phy. Doc. ADDITIONAL HISTORY: End-stage renal disease; GIST TECHNIQUE: Axial computed tomography images of the abdomen and pelvis without intravenous contrast. All CT scans at this facility use one or more dose reduction techniques, viz.: automated exposure control; ma/kV adjustment per patient size (including targeted exams where dose is matched to indication; i.e. head); or iterative reconstruction technique. Coronal and sagittal reformatted images were created and reviewed. COMPARISON: There are no prior studies for comparison. FINDINGS: Lower thorax: The heart is enlarged. There are coronary artery calcifications. There is a hiatal hernia. Lung bases are hyperinflated. There is atelectasis and scarring at the lung bases. There are trace effusions. ABDOMEN: Liver: unremarkable Gallbladder and bile ducts: Gallbladder is partially distended with small dependent stones. There is prominence of the common duct. Pancreas: Pancreas is mildly atrophic. Spleen: unremarkable Adrenals: Adrenals are difficult to identify. Kidneys and ureters: Right kidney is not visualized. Left kidney is mildly atrophic. There are left renal cysts. There is no pelvocaliectasis or ureterectasis. Stomach and bowel: There is thickening of the gastric wall. There is an air-fluid level in the stomach. Rotation is normal. There is duodenal and jejunal wall thickening. Small bowel wall thickening decreases distally. There is been partial right hemicolectomy. There is an ileocolic anastomosis in the right flank.Colon is incompletely distended which limits evaluation. There is minimal diverticulosis Appendix: See stomach and bowel PELVIS: Bladder: Bladder is almost completely empty. Reproductive: Uterus is atrophic. Adnexa are unremarkable. There is dense fluid and air in the region of the vagina. ABDOMEN and PELVIS: Intraperitoneal space: There is no free air. There is fluid in the abdomen and pelvis. Bones/joints: Bony structures are osteopenic. There are degenerative changes. There is partial ankylosis of the sacroiliac joints. There are compression deformities at multiple levels greatest at T9. Soft tissues: There is body wall edema. Vasculature: There is extensive vascular calcification large and small vessels. Lymph nodes: unremarkable IMPRESSION: Cardiomegaly and extensive atherosclerotic disease; absent right kidney and left renal atrophy; gallstones; ascites; gastric and proximal small bowel wall thickening; partial right hemicolectomy ileocolic anastomosis in the right flank; limited evaluation of the uterus and adnexa, probable fluid and air in the vaginal vault; osteopenia and compression fractures Additional findings as described above.
[2017-04-28 20:46] LABS: PARTIAL THROMBOPLASTIN TIME 30.5 Seconds (25.6-37.1)
--- NOTE | 2017-04-28 22:24 | US ---
EXAM: US Pelvis Complete, Transabdominal EXAM DATE/TIME: 04/28/2017 7:59 PM CLINICAL HISTORY: 67 years old, female; Pain; Vaginal pain; Additional info: Vaginal bleeding; patient could not tolerate transvaginal examination TECHNIQUE: Real-time transabdominal pelvic ultrasound (complete) with image documentation. COMPARISON: CT - ABD PELVIS W/O PO OR IV CONT 2017-04-28 18:17 FINDINGS: Uterus: Uterus is anteflexed. Uterus measures approximately 7.8 x 4 x 2.1 cm. Endometrium could not be identified. There is a fluid collection in the uterus, 2.6 x 3 x 0.6 cm. Right ovary: Right ovary measures approximately 2.7 x 1.9 x 1.9 cm.There is expected blood flow on Doppler imaging Left ovary: Left ovary measures approximately 1.8 x 1.2 x 1.2 cm.There is expected blood flow on Doppler imaging Free fluid: There is no free fluid. Bladder: Bladder is empty which limits evaluation of the pelvis. IMPRESSION: Limited evaluation of the pelvis due to empty bladder; fluid collection in the uterus
[2017-04-28] MEDS ORDERED: Oxycodone/Acetaminophen 5/325 mg Tab PO PRN (23:01)
[2017-04-29] MEDS ORDERED: Multivitamin Vitamin B Complex (Nephro-Vite) Tab PO SCH (09:00)
--- NOTE | 2017-04-29 10:29 | CP.PCM.HP ---
History of Present Illness - History of Present Illness History of Present Illness: pt admitted for abd pain s/p colonscopy yesterday. no f/c, n/v/d. jabari po. still w/ pain but has not required pain meds. pt also c/o chornic intermitent vaginal bleeding, none at present. per rn pt tolerated 100% of breakfast tray w/o pain or n/v. Present on Admission - Present on Admission Any Indicators Present on Admission: No Review of Systems - Gastrointestinal Gastrointestinal: As Per HPI, Abdominal Pain Past Patient History - Past Medical History & Family History Past Medical History?: Yes - Past Social History Smoking Status: Never Smoked - CARDIAC Hx Cardiac Disorders: Yes - PULMONARY Hx Respiratory Disorders: No - NEUROLOGICAL Hx Neurological Disorder: Yes - HEENT Hx HEENT Problems: Yes - RENAL Hx Chronic Kidney Disease: Yes - ENDOCRINE/METABOLIC Hx Endocrine Disorders: No - HEMATOLOGICAL/ONCOLOGICAL Hx Blood Disorders: Yes - INTEGUMENTARY Hx Dermatological Problems: No - MUSCULOSKELETAL/RHEUMATOLOGICAL Hx Musculoskeletal Disorders: No - GASTROINTESTINAL Hx Gastrointestinal Disorders: Yes Hx Gastroesophageal Reflux: No Hx Ileostomy: Yes Other/Comment: GI tumor/ Incontinent of stool. - GENITOURINARY/GYNECOLOGICAL Hx Genitourinary Disorders: Yes - PSYCHIATRIC Hx Psychophysiologic Disorder: Yes - SURGICAL HISTORY Hx Surgeries: Yes Hx Section: Yes (3) Other/Comment: GI tumor removal, parathyroid sx. - ANESTHESIA Hx Anesthesia: Yes Hx Anesthesia Reactions: No Hx Malignant Hyperthermia: No Meds Allergies/Adverse Reactions: Allergies Allergy/AdvReac Type Severity Reaction Status Date / Time No Known Allergies Allergy Verified 02/06/17 21:02 Physical Exam - Constitutional Appears: Well, Non-toxic, No Acute Distress - Head Exam Head Exam: ATRAUMATIC, NORMAL INSPECTION, NORMOCEPHALIC - Eye Exam Eye Exam: EOMI, Normal appearance, PERRL Pupil Exam: NORMAL ACCOMODATION, PERRL - ENT Exam ENT Exam: Mucous Membranes Moist, Normal Exam - Neck Exam Neck exam: Positive for: Normal Inspection - Respiratory Exam Respiratory Exam: Clear to Auscultation Bilateral, NORMAL BREATHING PATTERN - Cardiovascular Exam Cardiovascular Exam: REGULAR RHYTHM, RRR, +S1, +S2 - GI/Abdominal Exam GI & Abdominal Exam: Normal Bowel Sounds, Soft. absent: Tenderness - Extremities Exam Extremities exam: Positive for: full ROM, normal capillary refill, normal inspection, pedal pulses present - Back Exam Back exam: NORMAL INSPECTION - Neurological Exam Neurological exam: Alert, CN II-XII Intact, Normal Gait, Oriented x3, Reflexes Normal - Psychiatric Exam Psychiatric exam: Normal Affect, Normal Mood - Skin Skin Exam: Dry, Intact, Normal Color, Warm Results - Vital Signs Recent Vital Signs: Last Vital Signs Temp 99.1 F 04/29/17 08:46 Pulse 57 L 04/29/17 08:46 Resp 18 04/29/17 08:46 BP 121/53 L 04/29/17 08:46 Pulse Ox 96 04/29/17 08:46 - Labs Result Diagrams: 04/28/17 17:32 04/28/17 17:32 Labs: Laboratory Results - last 24 hr 04/28/17 04/28/17 04/28/17 17:32 17:32 20:15 WBC 3.2 L D RBC 4.34 Hgb 12.6 D Hct 40.0 MCV 92.1 D MCH 28.9 MCHC 31.4 L RDW 19.9 H Plt Count 179 MPV 9.1 Neut % (Auto) 89.8 H Lymph % (Auto) 8.1 L Stevens % (Auto) 1.0 Eos % (Auto) 0.7 Baso % (Auto) 0.4 Neut # 2.8 Lymph # 0.3 L Stevens # 0.0 Eos # 0.0 Baso # 0.0 Neutrophils % (Manual) 86 H Band Neutrophils % 2 Lymphocytes % (Manual) 10 L Monocytes % (Manual) 1 Eosinophils % (Manual) 1 Platelet Estimate Normal Large Platelets Present Anisocytosis (manual) Slight Macrocytosis (manual) Slight PT 11.2 INR 1.0 APTT 30.5 Sodium 136 Potassium 4.1 Chloride 92 L Carbon Dioxide 30 Anion Gap 18 BUN 31 H Creatinine 4.5 H Est GFR ( Amer) 12 Est GFR (Non-Af Amer) 10 Random Glucose 99 Calcium 9.4 Total Bilirubin 0.9 AST 24 ALT 22 Alkaline Phosphatase 116 Total Protein 7.5 Albumin 4.1 Globulin 3.4 Albumin/Globulin Ratio 1.2 Assessment & Plan (1) Abdominal pain Assessment and Plan: mostly controlled. jabari po dc today adviseed ambulation will likely help pain associated s/p colonoscopy Status: Acute (2) DVT prophylaxis Assessment and Plan: scd nad ae hose ambulation lovenox if admitted over 24h Status: Acute (3) ESRD (end stage renal disease) on dialysis Assessment and Plan: dialysis today outpt. if pt unable to make it will make in patient arrangements Status: Acute - Assessment and Plan (Free Text) Assessment: chronic vaginal bleeding-hgb stable, outpt pmd/unloading checker f/u Decision To Admit - Pt Status Changed To: Hospital Disposition Of: Observation - . Bed Request Type: Med/Surg Admitting Physician: Jade Collins
--- NOTE | 2017-04-29 12:17 | CARD ---
APPROVED REPORT EKG Measurement Heart [id number] <Conclusion> Normal sinus rhythm Possible Left atrial enlargement Left ventricular hypertrophy Nonspecific T wave abnormality Prolonged QT Abnormal ECG
[2017-04-29 16:07] VITALS: BP 121/53; PULSE 57; RESP 18; TEMP 99.1; O2SAT 96
--- NOTE | 2017-05-02 18:13 | CP.PCM.DIS ---
Provider - Provider Date of Admission: 04/28/17 20:15 Attending physician: Jade Collins MD Time Spent in preparation of Discharge (in minutes): 15 Diagnosis - Discharge Diagnosis (1) Abdominal pain Status: Acute (2) DVT prophylaxis Status: Acute (3) ESRD (end stage renal disease) on dialysis Status: Acute Hospital Course - Lab Results Lab Results: Most Recent Lab Values WBC 3.2 K/uL (4.8-10.8) L D 04/28/17 17:32 RBC 4.34 Mil/uL (3.80-5.20) 04/28/17 17:32 Hgb 12.6 g/dL (12.0-16.0) D 04/28/17 17:32 Hct 40.0 % (34.0-47.0) 04/28/17 17:32 MCV 92.1 fl (81.0-99.0) D 04/28/17 17:32 MCH 28.9 pg (27.0-31.0) 04/28/17 17:32 MCHC 31.4 g/dL (33.0-37.0) L 04/28/17 17:32 RDW 19.9 % (11.5-14.5) H 04/28/17 17:32 Plt Count 179 K/uL (130-400) 04/28/17 17:32 MPV 9.1 fl (7.2-11.7) 04/28/17 17:32 Neut % (Auto) 89.8 % (50.0-75.0) H 04/28/17 17:32 Lymph % (Auto) 8.1 % (20.0-40.0) L 04/28/17 17:32 Carson % (Auto) 1.0 % (0.0-10.0) 04/28/17 17:32 Eos % (Auto) 0.7 % (0.0-4.0) 04/28/17 17:32 Baso % (Auto) 0.4 % (0.0-2.0) 04/28/17 17:32 Neut # 2.8 K/uL (1.8-7.0) 04/28/17 17:32 Lymph # 0.3 K/uL (1.0-4.3) L 04/28/17 17:32 Carson # 0.0 K/uL (0.0-0.8) 04/28/17 17:32 Eos # 0.0 K/uL (0.0-0.7) 04/28/17 17:32 Baso # 0.0 K/uL (0.0-0.2) 04/28/17 17:32 Neutrophils % (Manual) 86 % (42-75) H 04/28/17 17:32 Band Neutrophils % 2 % (0-2) 04/28/17 17:32 Lymphocytes % (Manual) 10 % (20-50) L 04/28/17 17:32 Monocytes % (Manual) 1 % (0-10) 04/28/17 17:32 Eosinophils % (Manual) 1 % (0-7) 04/28/17 17:32 Platelet Estimate Normal (NORMAL) 04/28/17 17:32 Large Platelets Present 04/28/17 17:32 Anisocytosis (manual) Slight 04/28/17 17:32 Macrocytosis (manual) Slight 04/28/17 17:32 PT 11.2 Seconds (9.8-13.1) 04/28/17 20:15 INR 1.0 (0.9-1.2) 04/28/17 20:15 APTT 30.5 Seconds (25.6-37.1) 04/28/17 20:15 Sodium 136 mmol/l (132-148) 04/28/17 17:32 Potassium 4.1 MMOL/L (3.6-5.0) 04/28/17 17:32 Chloride 92 mmol/L (98-107) L 04/28/17 17:32 Carbon Dioxide 30 mmol/L (22-30) 04/28/17 17:32 Anion Gap 18 (10-20) 04/28/17 17:32 BUN 31 mg/dl (7-17) H 04/28/17 17:32 Creatinine 4.5 mg/dl (0.7-1.2) H 04/28/17 17:32 Est GFR ( Amer) 12 04/28/17 17:32 Est GFR (Non-Af Amer) 10 04/28/17 17:32 Random Glucose 99 mg/dL (65-105) 04/28/17 17:32 Calcium 9.4 mg/dL (8.4-10.2) 04/28/17 17:32 Total Bilirubin 0.9 mg/dl (0.2-1.3) 04/28/17 17:32 AST 24 U/L (14-36) 04/28/17 17:32 ALT 22 U/L (9-52) 04/28/17 17:32 Alkaline Phosphatase 116 U/L (38-126) 04/28/17 17:32 Total Protein 7.5 G/DL (6.3-8.2) 04/28/17 17:32 Albumin 4.1 g/dL (3.5-5.0) 04/28/17 17:32 Globulin 3.4 gm/dL (2.2-3.9) 04/28/17 17:32 Albumin/Globulin Ratio 1.2 (1.0-2.1) 04/28/17 17:32 Discharge Exam - Head Exam Head Exam: ATRAUMATIC, NORMAL INSPECTION, NORMOCEPHALIC Discharge Plan - Follow Up Plan Condition: FAIR Disposition: HOME/ ROUTINE Instructions: Hemodialysis (DC), Acute Abdominal Pain (DC) Additional Instructions: follow up with primary MD, [employer] and dr Foreman Hemodialysis days Tue,Tue, pts pain controlled. no f/c, n/v/d. jabari po final dx-abd pain s/p colonoscopy Referrals: Darnell Foreman MD [Staff Provider] - Dustin Godoy MD [Staff Provider] -
== END 2017-04-29 16:00 | disposition home or self-care (01) ==
LOC: H.ER 16:44 → H.ERHOLD 20:15 → H.MEDSURG1 22:50
PROVIDERS: ADMIT Family Medicine; ATTEND Family Medicine
DX: R10.9 Unspecified abdominal pain (principal); Z98.890 Other specified postprocedural states; I12.0 Hypertensive chronic kidney disease with stage 5 chronic kidney disease or end stage renal disease; N18.6 End stage renal disease; N93.9 Abnormal uterine and vaginal bleeding, unspecified; I51.7 Cardiomegaly; M85.80 Other specified disorders of bone density and structure, unspecified site; F41.9 Anxiety disorder, unspecified; Z99.2 Dependence on renal dialysis; Z86.73 Personal history of transient ischemic attack (TIA), and cerebral infarction without residual deficits
CPT/HCPCS: 74176; 76856; 80053; 85025; 85610; 85730; 93005; 96374; 99284; G0378; J2405; J7040

== ENCOUNTER 2018-08-16 04:08 | Emergency (ER) | payer MEDICARE, MEDICAID ==
[2018-08-16 04:09] VITALS: BMI 22.6
[2018-08-16 05:03] VITALS: BP 111/58; PULSE 85; RESP 16; TEMP 98.6; O2SAT 97
--- NOTE | 2018-08-16 06:20 | ED PDOC ---
Upper Extremity Pain/Injury Time Seen by Provider: 08/16/18 04:36 Chief Complaint (Nursing): Upper Extremity Problem/Injury History Per: Patient History/Exam Limitations: no limitations Onset/Duration Of Symptoms: Mins Current Symptoms Are (Timing): Gone Now Additional Complaint(s): 68 year old with ESRD and chronic vaginal bleeding presenting with concerns that her fistula wasn't working. She states that she woke up in the middle of the night anxious and startled that her fistula wasn't working because she couldn't "hear" it. She alerted her son who brought her to the [facility] She is under the care of a claim representative who is taking care of her vaginal bleeding, but states she feels the medication she is taking for it is not as effective. Denies heavy vaginal bleeding, lightheadedness, dizziness, chest pain, shortness of breath. Past Medical History Reviewed: Historical Data, Nursing Documentation Vital Signs: Last Vital Signs Temp 98.6 F 08/16/18 05:02 Pulse 85 08/16/18 05:02 Resp 16 08/16/18 05:02 BP 111/58 L 08/16/18 05:02 Pulse Ox 97 08/16/18 05:02 - Medical History PMH: Anxiety, CVA, HTN, End Stage Renal Disease (Last dialysis yesterday), Chronic Kidney Disease Denies: Arthritis, CHF, COPD, HIV, Hypercholesterolemia, Hypothyroidism, Pneumonia, Rheumatoid Arthritis - Family History Family History: States: Unknown Family Hx - Home Medications Home Medications: Ambulatory Orders Medication Instructions Recorded Aspirin [Aspirin Chewable] 1 tab PO DAILY 04/28/17 Cyanocobalamin/Folic AC/Vit B6 [B 1 tab PO DAILY 04/28/17 Complex-Folic Acid Tablet] Folic Acid 1 mg PO DAILY 04/28/17 Peg Electrolyte Lavage Solut 1 bottle PO DAILY 04/28/17 [Golytely] cloNIDine [Catapres] 0.3 mg PO Q8 04/28/17 hydrALAZINE [Apresoline] 50 mg PO Q12 04/28/17 levETIRAcetam [Keppra] 250 mg PO DAILY 04/28/17 - Allergies Allergies/Adverse Reactions: Allergies Allergy/AdvReac Type Severity Reaction Status Date / Time No Known Allergies Allergy Verified 02/06/17 21:02 Review of Systems ROS Statement: Except As Marked, All Systems Reviewed And Found Negative Genitourinary Female: Positive for: Vaginal Bleeding Physical Exam - Reviewed Nursing Documentation Reviewed: Yes Vital Signs Reviewed: Yes - Physical Exam Appears: Positive for: Well, Non-toxic, No Acute Distress Head Exam: Positive for: ATRAUMATIC, NORMAL INSPECTION, NORMOCEPHALIC Skin: Positive for: Normal Color, Warm, DRY Eye Exam: Positive for: EOMI, Normal appearance, PERRL ENT: Positive for: Normal ENT Inspection Neck: Positive for: Normal, Painless ROM Cardiovascular/Chest: Positive for: Regular Rate, Rhythm Respiratory: Positive for: CNT, Normal Breath Sounds Gastrointestinal/Abdominal: Positive for: Normal Exam, Soft Back: Positive for: Normal Inspection Extremity: Positive for: Other (R arm with palpable thrill and audible bruit, normal appearing) Neurological/Psych: Positive for: Awake, Alert, Normal Tone - ECG O2 Sat by Pulse Oximetry: 97 Pulse Ox Interpretation: Normal Medical Decision Making Medical Decision Making: Patient has no acute issue with her fistula. As for her vaginal bleeding, strongly encouraged continuinty of care with her claim representative. BP checked twice is within normal limits. Patient is stable for outpatient followup. Disposition - Clinical Impression Clinical Impression: Fistula - Patient ED Disposition Is Patient to be Admitted: No - Disposition Referrals: Darnell Foreman MD [Primary Care Provider] - Disposition: Routine/Home Disposition Time: 05:00 Condition: IMPROVED Instructions: Arteriovenous Fistula for Dialysis Forms: [email or web address] (Q[place])
== END 2018-08-16 05:15 | disposition home or self-care (01) ==
LOC: H.ER 04:08
DX: I77.0 Arteriovenous fistula, acquired (principal); I12.0 Hypertensive chronic kidney disease with stage 5 chronic kidney disease or end stage renal disease; N18.6 End stage renal disease; Z99.2 Dependence on renal dialysis